=== PATIENT | female | born 1970 | race Caucasian/White ===

== ENCOUNTER 2018-05-17 11:22 | Emergency (ER) | payer OTHER, SELFPAY ==
[2018-05-17] MEDS ORDERED: ALBUTEROL 2.5 MG/3 ML NEB SOL ONE (11:44)
[2018-05-17] MEDS ORDERED: IPRATROPIUM BROM 0.5MG/2.5ML ONE (11:44)
--- NOTE | 2018-05-17 12:50 | RAD REPORT ---
EXAM DESCRIPTION: RAD - Chest Pa And Lat (2 Views) - 05/17/2018 12:37 pm CLINICAL HISTORY: COUGH Chest pain. COMPARISON: ABDOMEN ACUTE SERIES dated 06/02/2011; CHEST PA AND LAT 2 VIEW dated 06/20/2004 FINDINGS: Mild linear opacity is present in the right mid lung, likely representing developing pneum onia. Elsewhere, no pulmonary infiltrate seen. The heart is mildly prominent in size. No displaced fr actures. IMPRESSION: Developing right mid lung pneumonia.
[2018-05-17] MEDS ORDERED: AZITHROMYCIN 250 MG TAB ONE (13:23)
[2018-05-17] MEDS ORDERED: CEFTRIAXONE/SWI 1gm 2 GM/20 ML SYR ONE (13:23)
[2018-05-17 13:28] LABS: Absolute Lymphocytes (CBC) 2.2 K/uL (0.7-4.9); Absolute Neutrophil 7.3 K/uL (1.8-8.0); Basophils % 0.6 % (0-1.3); Eosinophils % 6.6 % (0-4.4); Hematocrit 38.6 % (36.0-45.0); Lymphocytes % 19.2 % (15.3-44.8); MCH 28.9 pg (27.0-35.0); MPV 8.3 fL (7.6-11.3); Monocytes % 8.7 % (3.3-12.3); RBC Red Blood Cell Count 4.44 M/uL (3.86-4.86)
[2018-05-17 13:29] LABS: Protime INR 1.02
[2018-05-17] MEDS ORDERED: LORAZEPAM 0.5 MG TABLET ONE (13:32)
[2018-05-17 13:58] LABS: ALT/SGPT 17 U/L (12-78); AST/SGOT 12 U/L (15-37); Albumin 3.5 g/dL (3.4-5.0); Alkaline Phosphatase 73 U/L (45-117); BUN Blood Urea Nitrogen 10 mg/dL (7-18); Bicarbonate 28 mmol/L (21-32); Bilirubin Direct < 0.1 mg/dL (0-0.2); Bilirubin Total 0.2 mg/dL (0.2-1.0); Glucose Level 105 mg/dL (74-106); Protein, Total 7.7 g/dL (6.4-8.2); Sodium Level 138 mmol/L (136-145)
--- NOTE | 2018-05-17 14:28 | RAD REPORT ---
EXAM DESCRIPTION: CT - Chest For Pe Angio - 05/17/2018 2:17 pm CLINICAL HISTORY: Chest pain. back pain;SOB COMPARISON: No comparisons TECHNIQUE: CT angiogram of the pulmonary arteries was performed with MIP. All CT scans are performed using dose optimization technique as appropriate and may include automated exposure control or mA/KV adjustment according to patient size. FINDINGS: No evidence of pulmonary thromboembolism. No acute aortic finding demonstrated. Interstitial pulmonary opacities are present bilaterally likely representing mild interstitial pneumo nitis. Subsegmental atelectasis is present in both lung bases. Airspace opacity is noted in the poste rior aspect of the right middle lobe. Trace bilateral pleural fluid. No concerning bony finding. IMPRESSION: No evidence of pulmonary thromboembolism. Small area of airspace opacity in the posterior right middle lobe likely represents developing pneumo surjit. Trace bilateral pleural effusions.
--- NOTE | 2018-05-17 14:48 | ER ---
Nurse's Notes [facility] Name: Tabatha Drew Age: 47 yrs Sex: Female : 1970 Arrival Date: 05/17/2018 Time: 11:25 Bed 23 Private MD: None, None Diagnosis: Acute Right Side Pneumonia;Acute Stress Reaction Presentation: 05/17 11:29 Presenting complaint: Patient states: Cough x 2 weeks, productive cough starting two iw days ago with nasal congestion, yellow sputum, wheezing x 1 week. Transition of care: patient was not received from another setting of care. Onset of symptoms was May 17, 2018. Risk Assessment: Do you want to hurt yourself or someone else? Patient reports no desire to harm self or others. Initial Sepsis Screen: Does the patient meet any 2 criteria? HR > 90 bpm. Does the patient have a suspected source of infection? Yes: Productive cough/pneumonia. Care prior to arrival: None. 11:29 Method Of Arrival: Ambulatory iw 11:29 Acuity: SARAN 4 iw Triage Assessment: 15:24 Respiratory: the patient has moderate shortness of breath. iw 15:24 Respiratory: Onset: The symptoms/episode began/occurred. iw Historical: - Allergies: 11:32 Aspirin; iw 11:32 NSAIDS; iw - Home Meds: 11:32 Albuterol Inhl [Active]; iw - PMHx: 11:32 Asthma; Obesity; iw - PSHx: 11:32 None; iw - Immunization history:: Adult Immunizations not up to date. - Social history:: Smoking status: Patient/guardian denies using tobacco. - Ebola Screening: : Patient negative for fever greater than or equal to 101.5 degrees Fahrenheit, and additional compatible Ebola Virus Disease symptoms Patient denies exposure to infectious person Patient denies travel to an Ebola-affected area in the 21 days before illness onset No symptoms or risks identified at this time. Screenin:49 Abuse screen: Denies threats or abuse. Denies injuries from another. Nutritional aj1 screening: No deficits noted. Tuberculosis screening: No symptoms or risk factors identified. 15:24 Fall Risk None identified. iw Assessment: 11:49 General: Appears in no apparent distress. uncomfortable, Behavior is cooperative, aj1 anxious. Pain: Complains of pain in left mid back. Neuro: Level of Consciousness is awake, alert, obeys commands. Cardiovascular: Denies chest pain, Heart tones S1 S2 present Patient's skin is warm and dry. Rhythm is regular. Respiratory: Reports shortness of breath Reports that she has been having a lot of wheezing at home, which she has been using her nebulizer for, but now she is out of medication. Patient requests a new Rx for Duo Neb prior to leaving ER. Notified Dr. Starr of patient request Airway is patent Respiratory effort is even, unlabored, Respiratory pattern is regular, symmetrical, Breath sounds are clear bilaterally. GI: No signs and/or symptoms were reported involving the gastrointestinal system. : No signs and/or symptoms were reported regarding the genitourinary system. EENT: Reports nasal congestion nasal discharge. Derm: No signs and/or symptoms reported regarding the dermatologic system. Skin is pink, warm \T\ dry. normal. Musculoskeletal: No signs and/or symptoms reported regarding the musculoskeletal system. Circulation, motion, and sensation intact. 12:43 Reassessment: Patient appears in no apparent distress at this time. No changes from aj1 previously documented assessment. Patient and/or family updated on plan of care and expected duration. Pain level reassessed. Patient is alert, oriented x 3, equal unlabored respirations, skin warm/dry/pink. 13:30 Reassessment: Patient appears in no apparent distress at this time. No changes from aj1 previously documented assessment. Patient and/or family updated on plan of care and expected duration. Pain level reassessed. Patient is alert, oriented x 3, equal unlabored respirations, skin warm/dry/pink. 14:35 Reassessment: Patient and/or family updated on plan of care and expected duration. Pain aj1 level reassessed. General: Appears in no apparent distress. comfortable, Behavior is calm, cooperative. Neuro: Level of Consciousness is awake, alert, obeys commands. Cardiovascular: Patient's skin is warm and dry. Respiratory: Airway is patent Respiratory effort is even, unlabored, Respiratory pattern is regular, symmetrical. Respiratory: Denies SOB at this time. Derm: Skin is pink, warm \T\ dry. normal. Musculoskeletal: Circulation, motion, and sensation intact. Vital Signs: 11:44 Pulse 99; Resp 17 S; Temp 97.9; Pulse Ox 99% on R/A; iw 11:44 BP 149 / 77; iw 12:43 BP 146 / 75; Pulse 81; Resp 18; Pulse Ox 96% on R/A; aj1 14:00 BP 118 / 56; Pulse 74; Pulse Ox 96% on R/A; jp3 ED Course: 11:25 Patient arrived in ED. sb2 11:26 None, None is Private Physician. sb2 11:26 Dragan Starr MD is Attending Physician. wa 11:29 Arm band placed on. iw 11:31 Triage completed. iw 11:35 Lilly Ellison, NICHOLAS is Primary Nurse. aj1 11:49 Patient has correct armband on for positive identification. Bed in low position. Call aj1 light in reach. Side rails up X 1. 11:49 No provider procedures requiring assistance completed. aj1 12:23 Patient moved to radiology via wheelchair. jb2 12:36 X-ray completed. Patient tolerated procedure well. Patient moved back from radiology. jb2 12:37 Chest Pa And Lat (2 Views) XRAY In Process Unspecified. EDMS 13:23 Initial lab(s) drawn, by me, sent to lab. Inserted saline lock: 20 gauge in right aj1 antecubital area, using aseptic technique. Blood collected. 14:17 CT completed. Patient tolerated procedure well. Patient moved to CT via wheelchair. Patient moved back from CT. 14:18 CT Chest For PE Angio In Process Unspecified. EDMS 14:47 Sheri Brooks MD is Referral Physician. wa 15:23 IV discontinued, intact, bleeding controlled, No redness/swelling at site. Pressure iw dressing applied. Administered Medications: 11:41 Drug: Albuterol 2.5 mg Route: Inhalation; aj1 11:41 Drug: AtroVENT Aerosol 0.5 mg Route: Inhalation; aj1 13:23 Drug: Rocephin - (cefTRIAXone) 2 grams Route: IVPB; Infused Over: 30 mins; Site: right aj1 antecubital; 14:00 Follow up: IV Status: Completed infusion iw 13:23 Drug: Zithromax 500 mg Route: PO; aj1 14:10 Follow up: Response: No adverse reaction iw 14:46 Drug: Ativan 0.25 mg Route: PO; aj1 15:10 Follow up: Response: No adverse reaction iw Outcome: 14:48 Discharge ordered by . wa 15:23 Discharged to home ambulatory, with family. iw 15:23 Condition: good 15:23 Discharge instructions given to patient, family, Instructed on discharge instructions, follow up and referral plans. medication usage, Demonstrated understanding of instructions, follow-up care, medications, Prescriptions given X 4. 15:24 Patient left the ED. iw Signatures: Dispatcher [employer] EDMS Lilly Ellison RN RN aj1 Silas Araujo2 Gena Garcia Irene, RN RN iw Dragan Starr MD MD wa Billeau, Sheri sb2 Yanick Kennedy jp3
--- NOTE | 2018-05-17 14:48 | EDPHYS ---
Physician Documentation [facility] Name: Tabatha Drew Age: 47 yrs Sex: Female : 1970 Arrival Date: 05/17/2018 Time: 11:25 Bed 23 Private MD: None, None ED Physician Dragan Starr HPI: 05/17 11:32 This 47 yrs old Female presents to ER via Ambulatory with complaints of wa Anxiety, Productive Cough, Back Pain. 11:32 The patient or guardian reports cough, that is constant, with productive sputum, that wa is yellow, associated with left side back pain. Onset: The symptoms/episode began/occurred 2 day(s) ago. Severity of symptoms: At their worst the symptoms were moderate, in the emergency department the symptoms are unchanged. Modifying factors: The symptoms are alleviated by nothing, the symptoms are aggravated by nothing. Associated signs and symptoms: Pertinent positives: rhinorrhea, wheezing. , Pertinent negatives: chest pain, fever, sore throat, vomiting. The patient has experienced similar episodes in the past, a few times. The patient has not recently seen a physician. denies h/o smoking. . Historical: - Allergies: 11:32 Aspirin; iw 11:32 NSAIDS; iw - Home Meds: 11:32 Albuterol Inhl [Active]; iw - PMHx: 11:32 Asthma; Obesity; iw - PSHx: 11:32 None; iw - Immunization history:: Adult Immunizations not up to date. - Social history:: Smoking status: Patient/guardian denies using tobacco. - Ebola Screening: : Patient negative for fever greater than or equal to 101.5 degrees Fahrenheit, and additional compatible Ebola Virus Disease symptoms Patient denies exposure to infectious person Patient denies travel to an Ebola-affected area in the 21 days before illness onset No symptoms or risks identified at this time. ROS: 11:34 Constitutional: Negative for fever, chills, and weight loss, Eyes: Negative for injury, wa pain, redness, and discharge, ENT: Negative for injury, pain, and discharge, Neck: Negative for injury, pain, and swelling, Cardiovascular: Negative for chest pain, palpitations, and edema, Abdomen/GI: Negative for abdominal pain, nausea, vomiting, diarrhea, and constipation, Back: Negative for injury and pain, : Negative for injury, bleeding, discharge, and swelling, MS/Extremity: Negative for injury and deformity, Skin: Negative for injury, rash, and discoloration, Neuro: Negative for headache, weakness, numbness, tingling, and seizure, Psych: Negative for depression, anxiety, suicide ideation, homicidal ideation, and hallucinations. 11:34 Respiratory: Positive for cough, with yellow sputum, wheezing, Negative for hemoptysis, orthopnea. 11:34 All other systems are negative. Exam: 11:35 Constitutional: This is a well developed, well nourished patient who is awake, alert, wa and in no acute distress. Head/Face: Normocephalic, atraumatic. Eyes: Pupils equal round and reactive to light, extra-ocular motions intact. Lids and lashes normal. Conjunctiva and sclera are non-icteric and not injected. Cornea within normal limits. Periorbital areas with no swelling, redness, or edema. ENT: Nares patent. No nasal discharge, no septal abnormalities noted. Tympanic membranes are normal and external auditory canals are clear. Oropharynx with no redness, swelling, or masses, exudates, or evidence of obstruction, uvula midline. Mucous membranes moist. Neck: Trachea midline, no thyromegaly or masses palpated, and no cervical lymphadenopathy. Supple, full range of motion without nuchal rigidity, or vertebral point tenderness. No Meningismus. Chest/axilla: Normal chest wall appearance and motion. Nontender with no deformity. No lesions are appreciated. Cardiovascular: Regular rate and rhythm with a normal S1 and S2. No gallops, murmurs, or rubs. Normal PMI, no JVD. No pulse deficits. Abdomen/GI: Soft, non-tender, with normal bowel sounds. No distension or tympany. No guarding or rebound. No evidence of tenderness throughout. Back: No spinal tenderness. No costovertebral tenderness. Full range of motion. Skin: Warm, dry with normal turgor. Normal color with no rashes, no lesions, and no evidence of cellulitis. MS/ Extremity: Pulses equal, no cyanosis. Neurovascular intact. Full, normal range of motion. Neuro: Awake and alert, GCS 15, oriented to person, place, time, and situation. Cranial nerves II-XII grossly intact. Motor strength 5/5 in all extremities. Sensory grossly intact. Cerebellar exam normal. Normal gait. Psych: Awake, alert, with orientation to person, place and time. Behavior, mood, and affect are within normal limits. 11:35 Respiratory: the patient does not display signs of respiratory distress, Respirations: normal, Breath sounds: clear in upper lobes. mils rhonchi L Lower lobe, Respiratory rate: normal Vital Signs: 11:44 Pulse 99; Resp 17 S; Temp 97.9; Pulse Ox 99% on R/A; iw 11:44 BP 149 / 77; iw 12:43 BP 146 / 75; Pulse 81; Resp 18; Pulse Ox 96% on R/A; aj1 14:00 BP 118 / 56; Pulse 74; Pulse Ox 96% on R/A; jp3 MDM: 11:26 Patient medically screened. ne 11:36 Differential Diagnosis: Bronchitis Upper Respiratory Infection Asthma Exacerbation wa Viral Syndrome Pneumonia. Data reviewed: vital signs, nurses notes. 13:02 Test interpretation: by ED physician or midlevel provider: CXR: R mid lung linear wa opacity consistent with pna. pt c/o of L side pain. will CT to r/o PE. . 14:00 Test interpretation: by ED physician or midlevel provider: wbc 11.3. wa 14:45 Test interpretation: by ED physician or midlevel provider: CT chest: no PE. R side wa infiltrate. bilateral trace pleural effusion. Response to treatment: the patient's symptoms have markedly improved after treatment. Special discussion: asked for a few doses of xanax to get over anxiety of recent of mum. will give close f/u. 05/17 13:01 Order name: BMP; Complete Time: 14:00 ne 05/17 13:01 Order name: CBC with Diff; Complete Time: 14:00 ne 05/17 11:32 Order name: Chest Pa And Lat (2 Views) XRAY; Complete Time: 12:53 05/17 13:01 Order name: Hepatic Function; Complete Time: 14:00 ne 05/17 13:01 Order name: PT-INR; Complete Time: 14:00 ne 05/17 13:01 Order name: CT Chest For PE Angio; Complete Time: 14:29 ne 05/17 13:01 Order name: IV Start; Complete Time: 13:23 05/17 13:01 Order name: Labs collected and sent; Complete Time: 13:23 wa Administered Medications: 11:41 Drug: Albuterol 2.5 mg Route: Inhalation; aj1 11:41 Drug: AtroVENT Aerosol 0.5 mg Route: Inhalation; aj1 13:23 Drug: Rocephin - (cefTRIAXone) 2 grams Route: IVPB; Infused Over: 30 mins; Site: right aj1 antecubital; 14:00 Follow up: IV Status: Completed infusion iw 13:23 Drug: Zithromax 500 mg Route: PO; aj1 14:10 Follow up: Response: No adverse reaction iw 14:46 Drug: Ativan 0.25 mg Route: PO; aj1 15:10 Follow up: Response: No adverse reaction iw Disposition: 05/17/18 14:48 Discharged to Home. Impression: Acute Right Side Pneumonia, Acute Stress Reaction. - Condition is Stable. - Discharge Instructions: Community-Acquired Pneumonia, Adult, [id number], Stress and Stress Management. - Prescriptions for Levaquin 500 mg Oral Tablet - take 1 tablet by ORAL route once daily for 7 days; 7 tablet. Ativan 0.5 mg Oral Tablet - take 1 tablet by ORAL route every 12 hours As needed; 6 tablet. Albuterol Sulfate 2.5 mg /3 mL (0.083 %) Inhalation Solution for Nebulization - inhale 1 unit by NEBULIZATION route every 8 hours As needed; 1 box. Albuterol Sulfate 90 mcg/actuation - inhale 1-2 puff by INHALATION route every 4-6 hours; 1 Inhaler. - Medication Reconciliation Form, Thank You Letter, Antibiotic Education, Prescription Opioid Use form. - Follow up: Sheri Brooks MD; When: 1 - 2 days; Reason: Recheck today's complaints. - Problem is new. - Symptoms have improved. - Notes: take antibiotic for pneumonia as prescribed. follow up with your doctor or the one prescribed you for further check up within 2-3 days but return here immediately if worsening concerns. Signatures: Dispatcher [employer] Lilly Hughes RN RN aj1 Michelle Holguin RN RN Dragan Starr MD MD wa Corrections: (The following items were deleted from the chart) 15:24 14:48 05/17/2018 14:48 Discharged to Home. Impression: Acute Right Side Pneumonia; iw Acute Stress Reaction. Condition is Stable. Forms are Medication Reconciliation Form, Thank You Letter, Antibiotic Education, Prescription Opioid Use. Follow up: Sheri Brooks; When: 1 - 2 days; Reason: Recheck today's complaints. Problem is new. Symptoms have improved. khris
[2018-05-17 15:29] VITALS: TEMP 97.9
[2018-05-17 15:30] VITALS: O2SAT 96
[2018-05-17 15:31] VITALS: BP 118/56
== END 2018-05-17 15:24 | disposition home or self-care (01) ==
LOC: ER 11:22
DX: J18.8 Other pneumonia, unspecified organism (principal); F43.0 Acute stress reaction; J45.909 Unspecified asthma, uncomplicated; Z88.6 Allergy status to analgesic agent
CPT/HCPCS: 36415; 71046; 71275; 80048; 80076; 85025; 85610; 96365; 99285; J0696; Q9967

== ENCOUNTER 2018-05-27 14:39 | Emergency (ER) | payer SELFPAY ==
[2018-05-27] MEDS ORDERED: IPRATROPIUM BROM 0.5MG/2.5ML ONE (15:05)
[2018-05-27] MEDS ORDERED: predniSONE 20 MG TAB ONE (15:05)
[2018-05-27] MEDS ORDERED: ALBUTEROL 2.5 MG/3 ML NEB SOL ONE (15:05)
[2018-05-27 15:47] LABS: ALT/SGPT 17 U/L (12-78); AST/SGOT 15 U/L (15-37); Albumin 3.4 g/dL (3.4-5.0); Alkaline Phosphatase 76 U/L (45-117); BUN Blood Urea Nitrogen 12 mg/dL (7-18); Bicarbonate 30 mmol/L (21-32); Bilirubin Direct < 0.1 mg/dL (0-0.2); Bilirubin Total 0.3 mg/dL (0.2-1.0); Glucose Level 92 mg/dL (74-106); Potassium 3.7 mmol/L (3.5-5.1); Protein, Total 7.6 g/dL (6.4-8.2); Sodium Level 140 mmol/L (136-145)
[2018-05-27 16:04] LABS: MCH 28.9 pg (27.0-35.0)
--- NOTE | 2018-05-27 16:10 | RAD REPORT ---
EXAM DESCRIPTION: RAD - Chest Pa And Lat (2 Views) - 05/27/2018 3:47 pm CLINICAL HISTORY: Shortness of breath, persistent cough and wheezing COMPARISON: May 17 TECHNIQUE: PA and lateral views of the chest were obtained. FINDINGS: The lungs are underinflated. Patient has a mild baseline prominence of the interstitial ma rkings. There is patchy opacification in the medial lower right lung field. This is slightly more pro minent than on prior imaging. Stranding seen in the lateral right midlung field has diminished. Heart size is normal and central vasculature is within normal limits. No pleural effusion or pneumot horax seen. No acute bony finding noted. No aortic abnormality. IMPRESSION: Atelectasis and/ or remnant infiltrate in the medial right lower lung field.
[2018-05-27 16:29] LABS: Absolute Lymphocytes (CBC) 2.2 K/uL (0.7-4.9); Absolute Neutrophil 6.9 K/uL (1.8-8.0); Basophils % 0.4 % (0-1.3); Eosinophils % 6.7 % (0-4.4); Hematocrit 38.1 % (36.0-45.0); MCV 87.8 fL (80-100); MPV 8.4 fL (7.6-11.3); Monocytes % 9.7 % (3.3-12.3); RBC Red Blood Cell Count 4.34 M/uL (3.86-4.86)
--- NOTE | 2018-05-27 16:52 | ER ---
Nurse's Notes [facility] Name: Tabtaha Drew Age: 47 yrs Sex: Female : 1970 Arrival Date: 05/27/2018 Time: 14:40 Bed 14 Private MD: None, None Diagnosis: Pneumonia, unspecified organism;Conjunctivitis Presentation: 05/27 14:48 Presenting complaint: Patient states: cough, wheezing x >10 days. Also, bilateral eye ss redness and drainage x 3 days. Transition of care: patient was not received from another setting of care. Onset of symptoms is unknown. Risk Assessment: Do you want to hurt yourself or someone else? Patient reports no desire to harm self or others. Initial Sepsis Screen: Does the patient meet any 2 criteria? No. Patient's initial sepsis screen is negative. Does the patient have a suspected source of infection? Yes: Productive cough/pneumonia. Note Patient reports she was seen in ER and diagnosed with pneumonia 10 days ago, and has not followed up with PCP as directed because she reportedly does not have one. Care prior to arrival: None. 14:48 Method Of Arrival: Ambulatory ss 14:48 Acuity: SARAN 3 ss Historical: - Allergies: 14:54 Aspirin; ss 14:54 NSAIDS; ss - PMHx: 14:54 Asthma; ss - PSHx: 14:54 None; ss - Immunization history:: Adult Immunizations up to date. - Social history:: Smoking status: Patient/guardian denies using tobacco. - Ebola Screening: : Patient denies exposure to infectious person Patient denies travel to an Ebola-affected area in the 21 days before illness onset. Screenin:45 Abuse screen: Denies threats or abuse. Denies injuries from another. Nutritional kr2 screening: No deficits noted. Tuberculosis screening: No symptoms or risk factors identified. Fall Risk None identified. Assessment: 14:45 General: Appears in no apparent distress. uncomfortable, well groomed, well developed, kr2 well nourished, Behavior is calm, cooperative, appropriate for age. Pain: Denies pain. Neuro: Level of Consciousness is awake, alert, obeys commands, Oriented to person, place, time, situation, Appropriate for age. Cardiovascular: Capillary refill < 3 seconds in bilateral fingers Patient's skin is warm and dry. Respiratory: Airway is patent Respiratory effort is even, unlabored, Respiratory pattern is regular, symmetrical, Breath sounds with wheezes bilaterally. GI: Abdomen is flat, non-distended, Bowel sounds present X 4 quads. : Denies burning with urination, denies possiblility of . EENT: Oral mucosa is moist. Derm: Skin is intact, is healthy with good turgor, Skin is pink, warm \T\ dry. Musculoskeletal: Circulation, motion, and sensation intact. 15:15 Reassessment: Patient is alert, oriented x 3, equal unlabored respirations, skin kr2 warm/dry/pink. Patient states she feels much better since starting breathing treatment, no distress. 15:30 Reassessment: Patient appears in no apparent distress at this time. Patient and/or kr2 family updated on plan of care and expected duration. Pain level reassessed. Patient is alert, oriented x 3, equal unlabored respirations, skin warm/dry/pink. Patient denies pain at this time. Patient states feeling better. 16:30 Reassessment: Patient appears in no apparent distress at this time. Patient and/or kr2 family updated on plan of care and expected duration. Pain level reassessed. Patient is alert, oriented x 3, equal unlabored respirations, skin warm/dry/pink. Patient states feeling better. Patient states symptoms have improved. 17:15 Reassessment: Patient appears in no apparent distress at this time. Patient and/or kr2 family updated on plan of care and expected duration. Pain level reassessed. Patient is alert, oriented x 3, equal unlabored respirations, skin warm/dry/pink. Patient denies pain at this time. Patient states feeling better. Vital Signs: 14:47 BP 154 / 115; Pulse 88; Resp 16; Temp 98.7(TE); Pulse Ox 94% on R/A; Weight 68.04 kg; ss Height 5 ft. 1 in. (154.94 cm); 15:00 BP 164 / 117; jp3 16:00 BP 149 / 89 LA Sitting (auto/reg); Pulse 88; Pulse Ox 96% on R/A; jp3 16:30 BP 150 / 90; Pulse 89; Resp 17; Temp 98.4; Pulse Ox 96% ; kr2 14:47 Body Mass Index 28.34 (68.04 kg, 154.94 cm) ss 16:00 Left Forearm jp3 ED Course: 14:40 Patient arrived in ED. sb2 14:40 None, None is Private Physician. sb2 14:43 Rivera Mohan NP is PHCP. pm1 14:43 David Glaser MD is Attending Physician. pm1 14:47 Arm band placed on right wrist. ss 14:50 Bed in low position. Call light in reach. Side rails up X 1. Pulse ox on. NIBP on. jp3 14:53 Triage completed. ss 15:05 Initial lab(s) drawn, by nv, sent to lab. Inserted saline lock: 20 gauge in right jp3 antecubital area, using aseptic technique. Blood collected. 15:28 Cindy Tapia, RN is Primary Nurse. kr2 15:47 Chest Pa And Lat (2 Views) XRAY In Process Unspecified. EDMS 17:15 No provider procedures requiring assistance completed. IV discontinued, intact, kr2 bleeding controlled, No redness/swelling at site. Pressure dressing applied. Administered Medications: 15:03 Drug: Albuterol - atroVENT (3:1) (2.5 mg - 0.5 mg) 3 ml Route: Nebulizer; kr2 15:28 Follow up: Response: No adverse reaction; Marked relief of symptoms kr2 15:28 Drug: predniSONE 60 mg Route: PO; kr2 16:28 Follow up: Response: No adverse reaction kr2 17:13 Drug: Rocephin 1 grams Route: IV; Rate: calculated rate; Site: right antecubital; kr2 17:20 Follow up: Response: No adverse reaction; IV Status: Completed infusion kr2 Outcome: 16:51 Discharge ordered by . pm1 17:15 Discharged to home ambulatory. kr2 17:15 Condition: improved 17:15 Discharge instructions given to patient, Instructed on discharge instructions, follow up and referral plans. medication usage, Demonstrated understanding of instructions, follow-up care, medications, Prescriptions given X 4. 17:22 Patient left the ED. kr2 Signatures: Dispatcher [employer] EDMS Hazel Corral RN RN ss Rivera Mohan, CHRISTIANNE LIQUEFACTION PLANT OPERATOR pm1 Cindy Tapia RN RN kr2 Elizabeth Lyons sb2 Yanick Kennedy jp3 Corrections: (The following items were deleted from the chart) 16:38 16:30 BP 150 / 90; Pulse 89bpm; Resp 17bpm; Pulse Ox 96%; kr2 kr2 17:20 17:19 Rocephin 1 grams IV at calculated rate in right antecubital kr2 kr2 :49 17:30 No provider procedures requiring assistance completed. kr2 kr2 : 17:30 IV discontinued, intact, bleeding controlled, No redness/swelling at site. kr2 Pressure dressing applied, kr2 : 17:30 Reassessment: Patient appears in no apparent distress at this time. Patient kr2 and/or family updated on plan of care and expected duration. Pain level reassessed. Patient is alert, oriented x 3, equal unlabored respirations, skin warm/dry/pink. Patient denies pain at this time. Patient states feeling better. kr2 21:51 17:15 Discharge instructions given to patient, Instructed on discharge instructions, kr2 follow up and referral plans. medication usage, Demonstrated understanding of instructions, follow-up care, medications, Prescriptions given X 3, kr2
--- NOTE | 2018-05-27 16:52 | EDPHYS ---
Physician Documentation [facility] Name: Tabatha Drew Age: 47 yrs Sex: Female : 1970 Arrival Date: 05/27/2018 Time: 14:40 Bed 14 Private MD: None, None ED Physician David Glaser HPI: 05/27 16:32 This 47 yrs old Female presents to ER via Ambulatory with complaints of pm1 Asthma Exacerbation, Eye Problem. 16:32 The patient presents to the emergency department with wheezing, Current therapy: pm1 albuterol inhaler, albuterol nebs, the patient was reported to have audible wheezing. Onset: The symptoms/episode began/occurred today. Modifying factors: The symptoms are alleviated by inhaler, nebulizer treatment, the symptoms are aggravated by nothing. Associated signs and symptoms: Pertinent negatives: chest pain, fever, nausea, palpitations, vomiting, back pain. Severity of symptoms: in the emergency department the symptoms are worse. The patient has experienced similar episodes in the past, multiple times. The patient has been recently seen at the [facility] Emergency Department, Patient seen on 05/17 and diagnosed with right sided early pneumonia. Patient given a prescription for Levaquin for 7 days. 16:32 Patient with onset of bilateral eye redness and matting 3 days ago. Patient started pm1 taking her son's left over medication, Ocuflox?, for pink eye without any improvement. Historical: - Allergies: 14:54 Aspirin; ss 14:54 NSAIDS; ss - PMHx: 14:54 Asthma; ss - PSHx: 14:54 None; ss - Immunization history:: Adult Immunizations up to date. - Social history:: Smoking status: Patient/guardian denies using tobacco. - Ebola Screening: : Patient denies exposure to infectious person Patient denies travel to an Ebola-affected area in the 21 days before illness onset. ROS: 16:47 Constitutional: Negative for fever, chills, and weight loss, ENT: Negative for injury, pm1 pain, and discharge, Neck: Negative for injury, pain, and swelling, Cardiovascular: Negative for chest pain, palpitations, and edema. 16:47 Abdomen/GI: Negative for abdominal pain, nausea, vomiting, diarrhea, and constipation, Back: Negative for injury and pain, : Negative for injury, bleeding, discharge, and swelling, MS/Extremity: Negative for injury and deformity, Skin: Negative for injury, rash, and discoloration. 16:47 Neuro: Negative for headache, weakness, numbness, tingling, and seizure. 16:47 Eyes: Positive for matting, redness, Negative for pain, vision loss, visual disturbance. 16:47 Respiratory: Positive for cough, with yellow sputum, shortness of breath, wheezing. Exam: 16:47 Constitutional: This is a well developed, well nourished patient who is awake, alert, pm1 and in no acute distress. Head/Face: Normocephalic, atraumatic. ENT: Nares patent. No nasal discharge, no septal abnormalities noted. Tympanic membranes are normal and external auditory canals are clear. Oropharynx with no redness, swelling, or masses, exudates, or evidence of obstruction, uvula midline. Mucous membranes moist. Neck: Trachea midline, no thyromegaly or masses palpated, and no cervical lymphadenopathy. Supple, full range of motion without nuchal rigidity, or vertebral point tenderness. No Meningismus. Chest/axilla: Normal chest wall appearance and motion. Nontender with no deformity. No lesions are appreciated. 16:47 Cardiovascular: Regular rate and rhythm with a normal S1 and S2. No gallops, murmurs, or rubs. Normal PMI, no JVD. No pulse deficits. 16:47 Abdomen/GI: Soft, non-tender, with normal bowel sounds. No distension or tympany. No guarding or rebound. No evidence of tenderness throughout. Back: No spinal tenderness. No costovertebral tenderness. Full range of motion. Skin: Warm, dry with normal turgor. Normal color with no rashes, no lesions, and no evidence of cellulitis. MS/ Extremity: Pulses equal, no cyanosis. Neurovascular intact. Full, normal range of motion. 16:47 Eyes: Periorbital structures: appear normal, Pupils: no acute changes, Extraocular movements: no acute changes, Conjunctiva: injected, bilaterally, Corneas: are normal, Sclera: no appreciated abnormality, Lids and lashes: appear normal. 16:47 Respiratory: the patient does not display signs of respiratory distress, Respirations: normal, Breath sounds: wheezing: is heard diffusely. 16:47 Neuro: Orientation: is normal, Motor: is normal, moves all fours. Vital Signs: 14:47 BP 154 / 115; Pulse 88; Resp 16; Temp 98.7(TE); Pulse Ox 94% on R/A; Weight 68.04 kg; ss Height 5 ft. 1 in. (154.94 cm); 15:00 BP 164 / 117; jp3 16:00 BP 149 / 89 LA Sitting (auto/reg); Pulse 88; Pulse Ox 96% on R/A; jp3 16:30 BP 150 / 90; Pulse 89; Resp 17; Temp 98.4; Pulse Ox 96% ; kr2 14:47 Body Mass Index 28.34 (68.04 kg, 154.94 cm) ss 16:00 Left Forearm jp3 MDM: 14:43 Patient medically screened. pm1 16:47 Data reviewed: vital signs. Data interpreted: Pulse oximetry: on room air is 96 %. pm1 Interpretation: normal. 16:50 Counseling: I had a detailed discussion with the patient and/or guardian regarding: the pm1 historical points, exam findings, and any diagnostic results supporting the discharge/admit diagnosis, lab results, radiology results, the need for outpatient follow up, to return to the emergency department if symptoms worsen or persist or if there are any questions or concerns that arise at home. 16:50 ED course: Patient recently completed Levaquin for pneumonia. Chest X-ray shows either pm1 remnant pneumonia in right mid lung or atelectasis. WBC WNL and patient without any shortness of breath after breathing treatment indicating likely asthma exacerbation. Will give the patient Rocephin and Augmentin due to patient returning to the ER for respiratory complaints. Recommended follow up X-ray for ensure resolution. 05/27 14:53 Order name: CBC with Diff; Complete Time: 16:36 pm1 05/27 14:53 Order name: BMP; Complete Time: 15:52 pm1 05/27 14:53 Order name: Hepatic Function; Complete Time: 15:52 pm1 05/27 14:53 Order name: Chest Pa And Lat (2 Views) XRAY; Complete Time: 16:17 pm1 05/27 14:53 Order name: IV Saline Lock; Complete Time: 15:57 pm1 Administered Medications: 15:03 Drug: Albuterol - atroVENT (3:1) (2.5 mg - 0.5 mg) 3 ml Route: Nebulizer; kr2 15:28 Follow up: Response: No adverse reaction; Marked relief of symptoms kr2 15:28 Drug: predniSONE 60 mg Route: PO; kr2 16:28 Follow up: Response: No adverse reaction kr2 17:13 Drug: Rocephin 1 grams Route: IV; Rate: calculated rate; Site: right antecubital; kr2 17:20 Follow up: Response: No adverse reaction; IV Status: Completed infusion kr2 Disposition: 17:50 Co-signature as Attending Physician, David Glaser MD. rn Disposition: 05/27/18 16:51 Discharged to Home. Impression: Pneumonia, unspecified organism, Conjunctivitis. - Condition is Stable. - Discharge Instructions: Bacterial Conjunctivitis, Community-Acquired Pneumonia, Adult. - Prescriptions for Augmentin 875- 125 mg Oral Tablet - take 1 tablet by ORAL route every 12 hours for 10 days; 20 tablet. Medrol (Tariq) 4 mg Oral Tablets, Dose Pack - take 1 tablet by ORAL route as directed - follow package instructions; 1 packet. Gentamicin 0.3 % Ophthalmic Drops - instill 2 drops by OPHTHALMIC route every 4 hours for 7 days; 1 bottle. Albuterol Sulfate 90 mcg/actuation - inhale 1-2 puff by INHALATION route every 4-6 hours; 1 Inhaler. - Medication Reconciliation Form, Thank You Letter, Antibiotic Education form. - Follow up: Emergency Department; When: As needed; Reason: Worsening of condition. Follow up: Private Physician; When: 2 - 3 days; Reason: Recheck today's complaints, Continuance of care, Re-evaluation by your physician. - Problem is new. - Symptoms have improved. Signatures: Dispatcher [employer] EDMS David Glaser MD MD rn Smirch, Shelby, RN RN ss Marinas, Patrick, CHRISTIANNE BAND ATTACHER pm1 Cindy Tapia RN RN kr2 Corrections: (The following items were deleted from the chart) 16:55 16:51 05/27/2018 16:51 Discharged to Home. Impression: Pneumonia, unspecified organism. pm1 Condition is Stable. Forms are Medication Reconciliation Form, Thank You Letter, Antibiotic Education, Prescription Opioid Use. Follow up: Emergency Department; When: As needed; Reason: Worsening of condition. Follow up: Private Physician; When: 2 - 3 days; Reason: Recheck today's complaints, Continuance of care, Re-evaluation by your physician. Problem is new. Symptoms have improved. pm1 17:22 16:55 05/27/2018 16:51 Discharged to Home. Impression: Pneumonia, unspecified organism; kr2 Conjunctivitis. Condition is Stable. Discharge Instructions: Community-Acquired Pneumonia, Adult. Prescriptions for Augmentin 875-125 mg Oral Tablet - take 1 tablet by ORAL route every 12 hours for 10 days; 20 tablet, Medrol (Tariq) 4 mg Oral Tablets, Dose Pack - take 1 tablet by ORAL route as directed - follow package instructions; 1 packet. and Forms are Medication Reconciliation Form, Thank You Letter, Antibiotic Education. Follow up: Emergency Department; When: As needed; Reason: Worsening of condition. Follow up: Private Physician; When: 2 - 3 days; Reason: Recheck today's complaints, Continuance of care, Re-evaluation by your physician. Problem is new. Symptoms have improved. pm1
[2018-05-27] MEDS ORDERED: CEFTRIAXONE/SWI 1gm 1 GM/10 ML SYR ONE (17:07)
[2018-05-27 17:34] VITALS: O2SAT 96
[2018-05-27 17:35] VITALS: BP 150/90; TEMP 98.4
== END 2018-05-27 17:22 | disposition home or self-care (01) ==
LOC: ER 14:39
DX: J18.9 Pneumonia, unspecified organism (principal); H10.9 Unspecified conjunctivitis; Z88.6 Allergy status to analgesic agent
CPT/HCPCS: 36415; 71046; 80048; 80076; 85025; 94640; 96374; 99284; J0696; J7512

== ENCOUNTER 2019-05-21 23:59 | Emergency (ER) | payer OTHER, SELFPAY ==
--- OUTSIDE RECORDS SUMMARY | 2019-05-22 00:01 | XMS REPORT | Summary of Care ---
:1970 Author Organization [facility] Address [address] [place] [id number] Care Team Providers Name Role Phone Pcp, Patient Does Not Have A Primary Care Provider Reason for Referral Radiology Services (Routine) Status Reason Specialty Diagnoses / Referred By Referred To Procedures Contact Contact New Request Diagnostic Diagnoses Right ankle pain, unspecified chronicity Jus Bennett Radiology Procedures XR ANKLE <3 VW RIGHT Byron MD [address] [place] [address] Reason for Visit Reason Comments Follow-up Foot Pain right Ankle Pain right Encounter Details Date Type Department Care Team Description 04/06/2019 Office Visit [facility] Orthopaedic Satish Terrell S, Right ankle pain, Surgery- [facility] unspecified chronicity [address], [address] (Primary Dx) [facility] [place] [address] [place], [place] [phone] Allergies Active Allergy Reactions Severity Noted Date Comments Aspirin Unknown - See comments 07/19/2015 Allergy tests showed allergic documented as of this encounter (statuses as of 04/06/2019) Medications Medication Sig Dispensed Refills Start Date End Date Status phentermine 37.5 mg Take 37.5 mg by 0 Active capsule mouth every morning. HYDROcodone-acetaminoph Take 1 tablet by 0 Active en 5-325 mg tablet mouth every 4 (four) hours as needed. documented as of this encounter (statuses as of 04/06/2019) Active Problems No known active problemsdocumented as of this encounter (statuses as of 2018) Social History Tobacco Use Types Packs/Day Years Used Date Never Smoker Smokeless Tobacco: Never Used Alcohol Use Drinks/Week oz/Week Comments No Sex Assigned at Date Recorded Not on file Job Start Date Occupation Industry Not on file Not on file Not on file Travel History Travel Start Travel End No recent travel history available. documented as of this encounter Last Filed Vital Signs Vital Sign Reading Time Taken Comments Blood Pressure 148/92 04/06/2019 3:16 PM CDT Pulse - - Temperature - - Respiratory Rate - - Oxygen Saturation - - Inhaled Oxygen Concentration - - Weight 72.6 kg (160 lb) 04/06/2019 3:16 PM CDT Height 154.9 cm (5' 1") 04/06/2019 3:16 PM CDT Body Mass Index 30.23 04/06/2019 3:16 PM CDT documented in this encounter Progress Notes Satish Terrell S, PAC - 04/06/2019 3:30 PM CDT Cc: Chief Complaint Patient presents with Follow-up Foot Pain right Ankle Pain right Patient coming in for right foot and ankle pain. She states she hasn't had an injury and doesn't know what she has pain. Tabatha Drew is a 48 year old female. Right ankle pain anterior latteral, no accident, worse with walking and weight baring. She had a lightning pain in the plantar aspect of the 1st metatarsal, there is a feeling like ants in her feet, PmHX sciatica, she has had back injections 4 times, last time 10 years ago. Allergies Tabatha is allergic to aspirin. Medications Outpatient Medications Prior to Visit Medication Sig Dispense Refill HYDROcodone-acetaminophen 5-325 mg tablet Take 1 tablet by mouth every 4 ( four) hours as needed. phentermine 37.5 mg capsule Take 37.5 mg by mouth every morning. No facility-administered medications prior to visit. Histories Past Medical History: Diagnosis Date Asthma Transfusion history Past Surgical History: Procedure Laterality Date DISTAL RADIUS ORIF Right [facility]AL RADIUS [facility]IF Right 05/29/2017 [place]geon: Jus Bennett [place] [facility] [place] Socioeconomic History Marital status: Spouse name: Not on file Number of children: Not on file Years of education: Not on file Highest education level: Not on file Occupational History Not on file Social Needs Financial resource strain: Not on file Food insecurity: Worry: Not on file Inability: Not on file Transportation needs: Medical: Not on file Non-medical: Not on file Tobacco Use Smoking status: Never Smoker Smokeless tobacco: Never Used Substance and Sexual Activity Alcohol use: No Drug use: No Sexual activity: Not on file Lifestyle Physical activity: Days per week: Not on file Minutes per session: Not on file Stress: Not on file Relationships Social connections: Talks on phone: Not on file Gets together: Not on file Attends bahai service: Not on file Active member of club or organization: Not on file Attends meetings of clubs or organizations: Not on file Relationship status: Not on file Intimate partner violence: Fear of current or ex partner: Not on file Emotionally abused: Not on file Physically abused: Not on file Forced sexual activity: Not on file Other Topics Concern Not on file Social History Narrative Not on file Family History Problem Relation Age of Onset Stroke Mother Cancer Mother Hypertension Mother No Significant Medical Problems Father Review of Systems Constitutional: Positive for activity change. HENT: Negative. Eyes: Negative. Respiratory: Negative. Breasts: Negative. Cardiovascular: Negative. Gastrointestinal: Negative. Genitourinary: Negative. Musculoskeletal: Positive for joint swelling. Skin: Negative. Neurological: Negative. Psychiatric/Behavioral: Negative. Endocrine: Endocrine negative Vital Signs BP (!) 148/92 | Ht 61" (154.9 cm) | Wt 72.6 kg (160 lb) | BMI 30.23 kg/m Physical Exam General: Well-developed well-nourished oriented to person place and time HEENT normocephalic atraumatic atraumatic pupils equal round reactive to light extraocular muscles intact Cervical thoracic and lumbar spine without focal deficit normal kyphosis and lordosis Chest clear to auscultation and percussion Cardiovascular regular rate and rhythm without gallop rub or murmur soft without organomegaly Normal bowel sounds Neurologic: Focal myotome or dermatomal deficits Vascular: Intact symmetrical bilateral upper and lower extremities Skin without stasis varicosities or breakdown Extremities without cyanosis clubbing or edema Lymphatics no peripheral lymphedema Psych normal mood and affect. Neuropathic pain in her distal plantar foot. Assessment: 1. Right ankle pain, unspecified chronicity XR ANKLE <3 VW RIGHT Nerve conduction study. documented in this encounter Plan of Treatment Health Maintenance Due Date Last Done Comments DTaP,Tdap,and Td Vaccines (1 - 1989 Tdap) PAP SMEAR 1991 MAMMOGRAM 2010 INFLUENZA VACCINE 05/01/2019 PNEUMOCOCCAL 0-64 YEARS COMBINED Aged Out No longer eligible based on SERIES patient's age to complete this topic documented as of this encounter Results XR ANKLE <3 VW RIGHT (04/06/2019 3:32 PM CDT) Specimen Narrative Performed At 3 views of the right ankle there were no signs of fracture or dislocation PACS the ankle mortise was well maintained Performing Organization Address City/State/[facility] [place] Phone Number PACS documented in this encounter Visit Diagnoses Diagnosis Right ankle pain, unspecified chronicity - Primary documented in this encounter Insurance Payer Benefit Plan / Subscriber ID Effective Dates Phone Address Type Group [facility] [id number] [id number] P[facility] t S documented as of this encounter
--- OUTSIDE RECORDS SUMMARY | 2019-05-22 00:01 | XMS REPORT | Summary of Care ---
:1970 Author Organization [facility] Address [address] [place] [address] Care Team Providers Name Role Phone Pcp, Patient Does Not Have A Primary Care Provider Reason for Referral Radiology Services (Routine) Status Reason Specialty Diagnoses / Referred By Referred To Procedures Contact Contact New Request Diagnostic Diagnoses Right ankle pain, unspecified chronicity Jus Bennett Radiology Procedures XR ANKLE <3 VW RIGHT Byron MD [address] [place] [address] [place] [address] Reason for Visit Reason Comments Follow-up Foot Pain right Ankle Pain right Encounter Details Date Type Department Care Team Description 04/06/2019 Office Visit [facility] Orthopaedic Satish Terrell S, Right ankle pain, Surgery- [facility] unspecified chronicity [address], [address] (Primary Dx) [facility] [[email or web address] [place] [address] [place], [place] [phone] [address] Allergies Active Allergy Reactions Severity Noted [...] Procedure Laterality Date DISTAL RADIUS ORIF Right [facility] DISTAL RADIUS ORIF Right 05/29/2017 Surgeon: Jus Bennett MD; Location: [facility] Social History Socioeconomic History Marital status: Spouse [...] file Gets together: Not on file Attends adventist service: Not on file Active member of [...] mortise was well maintained Performing Organization Address City/State/[facility] Phone Number PACS documented in this encounter Visit Diagnoses Diagnosis Right ankle pain, unspecified chronicity - Primary documented in this encounter Insurance Payer Benefit Plan / Subscriber ID Effective Dates Phone Address Type Group [facility] [id number] [facility] PPO t S documented as of this encounter
--- OUTSIDE RECORDS SUMMARY | 2019-05-22 00:01 | XMS REPORT | Clinical Summary ---
:1970 Author Organization [facility] Address [address] [place] [address] Care Team Providers Name Role Phone Asked, No Pcp Primary Care Provider Unavailable Allergies Not on File Medications Not on file Active Problems Problem Noted Date Idiopathic progressive polyneuropathy Encounters Date Type Specialty Care Team Description 05/13/2019 Transcribe Orders Neurology Madie Garcia MD Right ankle pain , unspecified chronicity (Primary Dx) after 05/21/2018 Social History Tobacco Use Types Packs/Day Years Used Date Never Assessed Sex Assigned at Date Recorded Female 05/12/2019 10:00 PM CDT Job Start Date Occupation Industry Not on file Not on file Not on file Travel History Travel Start Travel End No recent travel history available. Last Filed Vital Signs Not on file Plan of Treatment Health Maintenance Due Date Last Done Comments CERVICAL CANCER SCREENING 1991 INFLUENZA VACCINE 03/31/2019 Procedures Procedure Name Priority Date/Time Associated Diagnosis Comments EMG Routine 05/13/2019 2:12 PM Right ankle pain, Results for this CDT unspecified chronicity procedure are in the results section. after 05/21/2018 Results EMG general request (05/13/2019 2:12 PM CDT) Impressions Performed At Patient complains of burning pain mostly in the dorsal right foot and sciatica bilaterally.She comes in for an EMG study of both legs. 1) Motor latencies, amplitudes and velocities are normal except absent left peroneal F wave 2) Sensory responses show absent saphenous responses and left superficial peroneal response 3) Bilateral H Reflex Responses are normal. 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 [facility] Rodriguez Department of Neurology [facility] [address] [facility] [address] [place], [place] [id number] Office: [phone] Narrative Performed At NERVE CONDUCTION AND ELECTROMYOGRAPHY REPORT [facility]; [place], [place] [address]; Name: Tabatha Drew Date of Procedure: 05/13/19 Sex: female Date of : 1970 Referring Physician: Swapna Bennett MD Ht: 5 foot 1 wt: 175temp: .5 Nerve Conduction(Latencies in msec, Amplitudes uV, Distance cm, Velocity M/Sec) Right Motor Nerves Dist. Lat. Prox lat. D. amp. P. Amp.Dist. Velocity Right Peroneal EDB 3.99.83.8 3.328.5 48 Right Peroneal TA Right Tibial3.810.82.3 232 40 Right Peroneal F Wave 43.6 Right Tibial F Wave 42.2 Right Sensory Nerves Dist. Lat. Prox lat. Dist. amp. Prox Amp. Distance Velocity Right Sural3.4 11 14.0 Right Superficial Peroneal 3.6 10 12.0 Right Saphenousabsent Left Motor Nerves Dist. Lat. Prox lat. D. amp. P. Amp.Dist. Velocity Left Peroneal EDB 3.69.74.5 4.330.5 47 Left Peroneal TA Left Tibial3.39.94 430 46 Left Peroneal F Wave absent Left Tibial F Wave 43.9 Left Sensory Nerves Dist. Lat. Prox lat. Dist. amp. Prox Amp. Distance Velocity Left Sural3.5 10 14.0 Left Superficial Peroneal spxfry00.0 Left Saphenousabsent Right Soleus (H Reflex Response Latency): 30 Left Soleus (H Reflex Response Latency): 30 Electromyography (Motor Unit in mV; H=High; L=Low; P=Polyphasic; NS=Non-specific) Right LegFibs. Pos. Waves Fasc. PolyphasiaMotor Units Recruitment Vas. Medialiswnl wnlwnl wnlwnlwnl Ant. Tibialiswnl wnlwnl wnlwnlwnl Peroneus Longus wnl wnlwnl wnlwnllve Vas.Lateraliswnl wnlwnl wnlwnlwnl Ext. Hallicus L. wnl wnlwnl 20HPwnl-1 Left LegFibs. Pos. Waves Fasc. PolyphasiaMotor Units Recruitment Vas. Medialiswnl wnlwnl wnlwnlwnl Ant. Tibialiswnl wnlwnl wnlwnlwnl Peroneus Longus wnl wnlwnl wnlwnllve Vas. Lateraliswnl wnlwnl wnlwnlwnl Ext. Hallicus L. 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
--- OUTSIDE RECORDS SUMMARY | 2019-05-22 00:02 | XMS REPORT | Summary of Care ---
:1970 Author Organization [facility] Address [address] [place] [address] Care Team Providers Name Role Phone Pcp, Patient Does Not Have A Primary Care Provider Reason for Referral (Routine) Status Reason Specialty Diagnoses / Referred By Referred To Procedures Contact Contact New Request Electroneurodiagnostic Diagnoses Right ankle pain, unspecified chronicity Black Bennett Emg/Ncv Procedures EMGNCV Jus Matthews MD Procedures [address] [place], [place] [address] [place], [place] Phone: [phone] Phone: Reason for Visit Reason Comments Orders Encounter Details Date Type Department Care Team Description 05/03/2019 Telephone [facility] Orthopaedic Jus Bennett MD Orders Surgery- [place] [address] [place] [address] [place] [address] Allergies Active Allergy Reactions Severity Noted Date Comments Aspirin Unknown - See comments 07/19/2015 Allergy tests showed allergic documented as of this encounter (statuses as of 05/04/2019) Medications Medication Sig Dispensed Refills Start Date End Date Status phentermine 37.5 mg Take 37.5 mg by 0 Active capsule mouth every morning. HYDROcodone-acetaminoph Take 1 tablet by 0 Active en 5-325 mg tablet mouth every 4 (four) hours as needed. documented as of this encounter (statuses as of 05/04/2019) Active Problems No known active problemsdocumented as [...] of this encounter Last Filed Vital Signs Not on filedocumented in this encounter Plan of Treatment Name Type Priority Associated Diagnoses Order Schedule EMGNCV EMG Routine Right ankle pain, unspecified 1 Occurrences starting chronicity 05/04/2019 until 11/29/2019 Health Maintenance Due Date Last Done Comments DTaP,Tdap,and Td Vaccines (1 - 1989 Tdap) PAP SMEAR 1991 MAMMOGRAM 2010 INFLUENZA VACCINE (#1) 2019 07/06/2016 PNEUMOCOCCAL 0-64 YEARS COMBINED Aged Out No longer eligible based on SERIES patient's age to complete this topic documented as of this encounter Results Not on filedocumented in this encounter Visit Diagnoses Diagnosis Right ankle pain, unspecified chronicity - Primary documented in this encounter Insurance Payer Benefit Plan / Subscriber ID Effective Phone Address Type Group Dates [facility] [id number] 2019-Pres HMO/PPO/[facility] HEALTHCARE PPO ent [employer] xxxxxxxxx 2017-Pres [address] [place] [id number] [place] [address] documented as of this encounter
--- OUTSIDE RECORDS SUMMARY | 2019-05-22 00:02 | XMS REPORT | Summary of Care ---
:1970 Author Organization [facility] Address [address] [place] [address] Care Team Providers Name Role Phone Pcp, Patient Does Not Have A Primary Care Provider Reason for Referral (Routine) Status Reason Specialty Diagnoses / Referred By Referred To Procedures Contact Contact New Request Electroneurodiagnostic Diagnoses Right ankle pain, unspecified chronicity Black Bennett Emg/Ncv Procedures EMGNCV Jus Matthews MD Procedures [address] [place], [place] [address] [place], [place] Phone: [phone] Phone: Reason for Visit Reason Comments Orders Encounter Details Date Type Department Care Team Description 05/06/2019 Telephone [facility] Orthopaedic Jus Bennett MD Orders Surgery- [place] [address] [place] [address] [place] [address] Allergies Active Allergy Reactions Severity Noted Date Comments Aspirin Unknown - See comments 07/19/2015 Allergy tests showed allergic documented as of this encounter (statuses as of 05/10/2019) Medications Medication Sig Dispensed Refills Start Date End Date Status phentermine 37.5 mg Take 37.5 mg by 0 Active capsule mouth every morning. HYDROcodone-acetaminoph Take 1 tablet by 0 Active en 5-325 mg tablet mouth every 4 (four) hours as needed. documented as of this encounter (statuses as of 05/10/2019) Active Problems No known active problemsdocumented as [...] EMGNCV EMG Routine Right ankle pain, unspecified Expected: 05/17/2019, Expires: chronicity 07/10/2019 Health Maintenance Due Date Last Done Comments [...] ID Effective Phone Address Type Group Dates [facility] [id number] 2019-Pres HMO/PPO/POS HEALTHCARE HEALTHCARE PPO ent [employer] xxxxxxxxx 2017-Pres [address] [place] [id number] [place] [address] documented as of this encounter
--- OUTSIDE RECORDS SUMMARY | 2019-05-22 00:02 | XMS REPORT | Summary of Care ---
:1970 Author Organization [facility] Address [address] [place] [address] Care Team Providers Name Role Phone Pcp, Patient Does Not Have A Primary Care Provider Reason for Visit Radiology Services (Routine) Status Reason Specialty Diagnoses / Referred By Referred To Procedures Contact Contact New Request Diagnostic Diagnoses Right ankle pain, unspecified chronicity Jus Bennett Radiology Procedures XR ANKLE <3 VW RIGHT Byron MD [address] [place] [address] [place] [address] Encounter Details Date Type Department Care Team Description 04/06/2019 Hospital Encounter [facility] - Radiology [address] [facility] [place] [address] [place] [phone] [address] Allergies Active Allergy Reactions Severity Noted Date Comments Aspirin Unknown - See comments 07/19/2015 Allergy tests showed allergic documented as of this encounter (statuses as of 04/07/2019) Medications Medication Sig Dispensed Refills Start Date End Date Status phentermine 37.5 mg Take 37.5 mg by 0 Active capsule mouth every morning. HYDROcodone-acetaminoph Take 1 tablet by 0 Active en 5-325 mg tablet mouth every 4 (four) hours as needed. documented as of this encounter (statuses as of 04/07/2019) Active Problems No known active problemsdocumented as [...] filedocumented in this encounter Plan of Treatment Health Maintenance Due Date Last Done Comments DTaP,Tdap,and Td Vaccines (1 - 1989 Tdap) PAP SMEAR 1991 MAMMOGRAM 2010 INFLUENZA VACCINE 05/01/2019 PNEUMOCOCCAL 0-64 YEARS COMBINED Aged Out No longer eligible based on SERIES patient's age to complete this topic documented as of this encounter Procedures Procedure Name Priority Date/Time Associated Diagnosis Comments XR ANKLE <3 VW Routine 04/06/2019 3:32 PM Right ankle pain, Results for this RIGHT CDT unspecified procedure are in chronicity the results section. documented in this encounter Results XR ANKLE <3 VW RIGHT (04/06/2019 3:32 PM CDT) Specimen Narrative Performed At 3 views of the right ankle there were no signs of fracture or dislocation PACS the ankle mortise was well maintained Performing Organization Address City/State/Zipcode Phone Number PACS documented in this encounter Visit Diagnoses Diagnosis Right ankle pain, unspecified chronicity documented in this encounter Insurance Payer Benefit Plan / Subscriber ID Effective Dates Phone Address Type Group [facility] [id number] 2019-[facility] HMO/PPO/[facility] PPO t S documented as of this encounter
--- OUTSIDE RECORDS SUMMARY | 2019-05-22 00:02 | XMS REPORT | Summary of Care ---
:1970 Author Organization [facility] Address [address] [place] [address] Care Team Providers Name Role Phone Pcp, Patient Does Not Have A Primary Care Provider Reason for Visit Reason Comments Referral/consult Encounter Details Date Type Department Care Team Description 04/28/2019 Telephone [facility] Orthopaedic Jus Bennett, Referral/ consult Surgery- Roxanna PICHARDO [address] [facility] [place] [address] [address] [phone] [place] [address] Allergies Active Allergy Reactions Severity Noted Date Comments Aspirin Unknown - See comments 07/19/2015 Allergy tests showed allergic documented as of this encounter (statuses as of 04/29/2019) Medications Medication Sig Dispensed Refills Start Date End Date Status phentermine 37.5 mg Take 37.5 mg by 0 Active capsule mouth every morning. HYDROcodone-acetaminoph Take 1 tablet by 0 Active en 5-325 mg tablet mouth every 4 (four) hours as needed. documented as of this encounter (statuses as of 04/29/2019) Active Problems No known active problemsdocumented as [...] Results Not on filedocumented in this encounter Insurance Payer Benefit Plan / Subscriber ID Effective Phone Address Type Group [facility] [id number] 2019-Pres HMO/PPO/[facility] PPO ent [employer] xxxxxxxxx 2017-Pres [address] [place] [id number] [place] [address] documented as of this encounter
--- OUTSIDE RECORDS SUMMARY | 2019-05-22 00:02 | XMS REPORT | Summary of Care ---
:1970 Author Organization [facility] - Health Address [address] [place] [address] Care Team Providers Name Role Phone Pcp, Patient Does Not Have A Primary Care Provider Encounter Details Date Type Department Care Team Description 04/27/2019 Orders Only [facility] Doctor Unassigned, No [address] [facility] [place] [address] [address] [place] [address] Allergies Active Allergy Reactions Severity Noted Date Comments Aspirin Unknown - See comments 07/19/2015 Allergy tests showed allergic documented as of this encounter (statuses as of 05/03/2019) Medications Medication Sig Dispensed Refills Start Date End Date Status phentermine 37.5 mg Take 37.5 mg by 0 Active capsule mouth every morning. HYDROcodone-acetaminoph Take 1 tablet by 0 Active en 5-325 mg tablet mouth every 4 (four) hours as needed. documented as of this encounter (statuses as of 05/03/2019) Active Problems No known active problemsdocumented as [...] Procedure Name Priority Date/Time Associated Diagnosis Comments REFERRAL- Routine 04/27/2019 12:01 AM CDT REQUEST/RESPONSE documented in this encounter Results Not on filedocumented in this encounter Insurance Payer Benefit Plan / Subscriber ID Effective Phone Address Type Group Dates [facility] [id number] 2019-Pres HMO/PPO/POS [facility] HEALTHCARE PPO ent [employer] xxxxxxxxx 2017-Pres [address] [place] [id number] [place] [address] documented as of this encounter
--- OUTSIDE RECORDS SUMMARY | 2019-05-22 00:02 | XMS REPORT | Summary of Care ---
:1970 Author Organization [facility] Address [address] [place] [address] Care Team Providers Name Role Phone Pcp, Patient Does Not Have A Primary Care Provider Reason for Visit Reason Comments Orders Encounter Details Date Type Department Care Team Description 04/26/2019 Telephone [facility] Orthopaedic Jus Bennett MD Orders Surgery- [place] [address] [facility] [address] [facility], [place] [address] [place] [address] Allergies Active Allergy Reactions Severity Noted Date Comments Aspirin Unknown - See comments 07/19/2015 Allergy tests showed allergic documented as of this encounter (statuses as of 04/27/2019) Medications Medication Sig Dispensed Refills Start Date End Date Status phentermine 37.5 mg Take 37.5 mg by 0 Active capsule mouth every morning. HYDROcodone-acetaminoph Take 1 tablet by 0 Active en 5-325 mg tablet mouth every 4 (four) hours as needed. documented as of this encounter (statuses as of 04/27/2019) Active Problems No known active problemsdocumented as [...] Subscriber ID Effective Phone Address Type Group [facility] [id number] 2019-Pres HMO/PPO/[facility] HEALTHCARE PPO ent [employer] xxxxxxxxx 2017-Pres [address] [place] [id number] [place] [address] documented as of this encounter
--- OUTSIDE RECORDS SUMMARY | 2019-05-22 00:03 | XMS REPORT | Summary of Care ---
:1970 Author Organization [facility] - Health Address [address] [place] [address] Care Team Providers Name Role Phone Pcp, Patient Does Not Have A Primary Care Provider Encounter Details Date Type Department Care Team Description 05/17/2019 Orders Only [facility] Doctor Unassigned, No [address] [facility] [place] [address] [address] [place] [address] Allergies Active Allergy Reactions Severity Noted Date Comments Aspirin Unknown - See comments 07/19/2015 Allergy tests showed allergic documented as of this encounter (statuses as of 05/17/2019) Medications Medication Sig Dispensed Refills Start Date End Date Status phentermine 37.5 mg Take 37.5 mg by 0 Active capsule mouth every morning. HYDROcodone-acetaminoph Take 1 tablet by 0 Active en 5-325 mg tablet mouth every 4 (four) hours as needed. documented as of this encounter (statuses as of 05/17/2019) Active Problems No known active problemsdocumented as [...] filedocumented in this encounter Plan of Treatment Date Type Specialty Care Team Description 05/17/2019 Office Visit Orthopedic Surgery Satish Terrell, BOY [address] [place] [address] [phone] Health Maintenance Due Date Last Done Comments DTaP,Tdap,and Td Vaccines (1 - 1989 Tdap) PAP SMEAR 1991 MAMMOGRAM 2010 INFLUENZA VACCINE (#1) 2019 07/06/2016 PNEUMOCOCCAL 0-64 YEARS COMBINED Aged Out No longer eligible based on SERIES patient's age to complete this topic documented as of this encounter Procedures Procedure Name Priority Date/Time Associated Diagnosis Comments ASSIGNMENT OF BENEFITS Routine 05/17/2019 3:38 PM CDT documented in this encounter Results Not on filedocumented in this encounter Insurance Payer Benefit Plan / Subscriber ID Effective Dates Phone Address Type [facility] [id number] 2019-[facility] HMO/PPO/[facility] PPO t S documented as of this encounter
--- OUTSIDE RECORDS SUMMARY | 2019-05-22 00:03 | XMS REPORT | Summary of Care ---
:1970 Author Organization [facility] Address [address] [place] [id number] Care Team Providers Name Role Phone Pcp, Patient Does Not Have A Primary Care Provider Reason for Referral (Routine) Status Reason Specialty Diagnoses / Referred By Referred To Procedures Contact Contact New Request Location Physical Diagnoses Neuropathy Satish Terrell Preference Therapy Procedures CONSULT/REFERRAL PHYSICAL THERAPY S, PAC [address] [place] [address] Reason for Visit Reason Comments Follow-up EMG/NVC RLE Encounter Details Date Type Department Care Team Description 05/17/2019 Office Visit [facility] Orthopaedic Satish Terrell S, Neuropathy (Primary Surgery- [facility] PAC Dx) [address] [facility], [address] [place] [address] [place], [place] [phone] Allergies Active Allergy Reactions Severity Noted Date Comments Aspirin Unknown - See comments 07/19/2015 Allergy tests showed allergic documented as of this encounter (statuses as of 05/17/2019) Medications Medication Sig Dispensed Refills Start Date End Date Status phentermine 37.5 mg Take 37.5 mg by 0 Active capsule mouth every morning. HYDROcodone-acetamino Take 1 tablet by 0 Active phen 5-325 mg tablet mouth every 4 (four) hours as needed. gabapentin Take 1 capsule 90 capsule 0 05/17/2019 06/16/2019 Active (NEURONTIN) 300 mg by mouth 3 capsuleIndications: (three) times Neuropathy daily for 30 days. documented as of this encounter (statuses as [...] Sign Reading Time Taken Comments Blood Pressure 136/83 05/17/2019 3:40 PM CDT Pulse 83 05/17/2019 3:40 PM CDT Temperature - - Respiratory Rate - - Oxygen Saturation - - Inhaled Oxygen Concentration - - Weight 72.6 kg (160 lb) 05/17/2019 3:40 PM CDT Height 154.9 cm (5' 1") 05/17/2019 3:40 PM CDT Body Mass Index 30.23 05/17/2019 3:40 PM CDT documented in this encounter Progress Notes Satish Terrell, PAC - 05/17/2019 3:45 PM CDT Cc: Chief Complaint Patient presents with Follow-up EMG/NVC RLE Patient here for EMG results. Continues to have pain in her right lower leg. Reports no changes in medications or allergies since the last office visit. Alfreda Blanchard 05/17/2019 3:47 PM Tabatha Dueñassheela Drew is a 48 year old female. Follow-up on bilateral radiculopathy with EMG results This is affecting her activities of daily living its difficult going to grocery store. Right ankle pain anterior latteral, no accident, [...] Procedure Laterality Date DISTAL RADIUS ORIF Right [facility] DISTAL RADIUS ORIF Right 05/29/2017 Surgeon: [...] file Gets together: Not on file Attends anglican service: Not on file Active member of [...] Psychiatric/Behavioral: Negative. Endocrine: Endocrine negative Vital Signs Ht 61" (154.9 cm) | Wt 72.6 kg (160 lb) | BMI 30.23 kg/m Physical Exam Musculoskeletal: Physical Exam Constitutional: oriented to person, place, and time. appears well-developed and well-nourished. HENT: Head: Normocephalic and atraumatic. Right Ear: External ear normal. Left Ear: External ear normal. Eyes: Conjunctivae are normal. Neck: Normal range of motion. No strabismus Neck supple. Cardiovascular: Normal rate and regular rhythm. Pulmonary/Chest: Normal respiratory rate equal chest rise and fall in no apparent distress Abdominal: Abdomen nondistended nontender Neurological: alert and oriented to person, place, and time. No asymmetry Skin: Skin is warm and dry. Psychiatric: normal mood and affect. behavior is normal. Judgment and thought content normal. Nursing note and vitals reviewed. Back pain exam Location Strength in the lower extremities 5 over 5 to include extensor hallucis longus foot plantarflexion foot dorsiflexion knee flexion knee extension hip abduction and hip adduction and hip flexion. Deep tendon reflexes +2 over 4 patella bilateral +2 over 4 Achilles bilateral Sensory function intact in the lower extremities Follow-up on nerve conduction study impression: Patient complains of burning pain mostly in the dorsal right foot and bilateral sciatica. She comes in for EMG study of both legs. 1. Or latencies, amplitudes and velocities are normal except absent left peroneal F Wave 2. Sensory responses show absent saphenous response and left superficial peroneal response 3. Bilateral H reflex response are normal. 4. 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 Neuropathy I recommend that she follow-up with the neurologist she has an appointment with Dr. Mckeon he was going to do her nerve conduction study but she should consult with him going to give her prescription for physical therapy to help with her gait and her strength. I will start her on Neurontin but we will not long-term manage that. 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
[2019-05-22 01:40] LABS: Absolute Lymphocytes (CBC) 2.9 K/uL (0.7-4.9); Basophils % 0.3 % (0-1.3); Hematocrit 36.4 % (36.0-45.0); MPV 8.4 fL (7.6-11.3); RBC Red Blood Cell Count 4.19 M/uL (3.86-4.86)
[2019-05-22 01:44] LABS: Albumin 3.5 g/dL (3.4-5.0); Bilirubin Total 0.2 mg/dL (0.2-1.0); Potassium 3.4 mmol/L (3.5-5.1); Protein, Total 7.2 g/dL (6.4-8.2)
--- NOTE | 2019-05-22 01:48 | ER ---
Nurse's Notes [facility] Name: Tabatha Drew Age: 48 yrs Sex: Female : 1970 Arrival Date: 05/22/2019 Time: 00:02 Bed 16 Private MD: Diagnosis: Polyneuropathy, unspecified Presentation: 05/22 00:05 Presenting complaint: Patient states: that she has been seeing Dr Bennett for burning fc to right foot for some time. Then last week her left calf started to have some numbness. She then has an EMG done and has an appt to see Dr Mckeon on . The same spot that was numb last week for a day is now having pain (left calf). Transition of care: patient was not received from another setting of care. Onset of symptoms was May 2019. Risk Assessment: Do you want to hurt yourself or someone else? Patient reports no desire to harm self or others. Initial Sepsis Screen: Does the patient meet any 2 criteria? No. Patient's initial sepsis screen is negative. Does the patient have a suspected source of infection? No. Patient's initial sepsis screen is negative. Care prior to arrival: None. 00:05 Method Of Arrival: Ambulatory fc 00:05 Acuity: SARAN 3 fc Historical: - Allergies: 00:30 Aspirin; fc 00:30 NSAIDS; fc - Home Meds: 00:30 Albuterol Inhl as needed [Active]; gabapentin 300 mg oral cap 1 cap 3 times per day fc [Active]; - PMHx: 00:30 Asthma; Obesity; fc - PSHx: 00:30 right wrist; fc - Immunization history:: Last tetanus immunization: up to date. - Social history:: Smoking status: Patient/guardian denies using tobacco, Patient uses alcohol, occasionally. - Ebola Screening: : Patient negative for fever greater than or equal to 101.5 degrees Fahrenheit, and additional compatible Ebola Virus Disease symptoms Patient denies exposure to infectious person Patient denies travel to an Ebola-affected area in the 21 days before illness onset. Screenin:24 Abuse screen: Denies threats or abuse. Denies injuries from another. Nutritional lp1 screening: No deficits noted. Tuberculosis screening: No symptoms or risk factors identified. Fall Risk None identified. Assessment: 00:22 General: Appears in no apparent distress. Behavior is calm, cooperative, appropriate lp1 for age. Pain: Denies pain. Neuro: Level of Consciousness is awake, alert, obeys commands, Oriented to person, place, time, situation, Reports paresthesias in left calf. Cardiovascular: Patient's skin is warm and dry. Respiratory: Respiratory effort is even, unlabored. GI: No deficits noted. : No deficits noted. EENT: No deficits noted. EENT:. Derm: Skin is pink, warm \T\ dry. Musculoskeletal: No deficits noted. 02:11 Reassessment: Provider at bedside to discuss results with patient and plan for lp1 follow-up. Vital Signs: 00:05 BP 144 / 76; Pulse 78; Resp 18; Temp 98.3(O); Pulse Ox 100% on R/A; Weight 72.57 kg (R); Height 5 ft. 1 in. (154.94 cm) (R); Pain 2/10; 00:05 Body Mass Index 30.23 (72.57 kg, 154.94 cm) ED Course: 00:02 Patient arrived in ED. ds1 00:13 Sagrario Li, RN is Primary Nurse. lp1 00:24 Patient has correct armband on for positive identification. lp1 00:27 Rivera Mohan NP is PHCP. pm1 00:27 Dragan Starr MD is Attending Physician. pm1 00:27 Triage completed. 00:28 Arm band placed on right wrist. lp1 02:11 No provider procedures requiring assistance completed. Patient did not have IV access lp1 during this emergency room visit. Administered Medications: No medications were administered Outcome: 01:47 Discharge ordered by . pm1 02:11 Discharged to home ambulatory. lp1 02:11 Condition: good 02:11 Discharge instructions given to patient, Instructed on discharge instructions, follow up and referral plans. Demonstrated understanding of instructions, follow-up care. 02:11 Patient left the ED. lp1 Signatures: Rosa Painting RN RN Nayeli Taylor ds1 Sagrario Li RN RN lp1 Rivera Mohan NP DIRECTOR FUNDS DEVELOPMENT pm1
--- NOTE | 2019-05-22 01:48 | EDPHYS ---
Physician Documentation [facility] Name: Tabatha Drew Age: 48 yrs Sex: Female : 1970 Arrival Date: 05/22/2019 Time: 00:02 Bed 16 Private MD: ED Physician Dragan Starr HPI: 05/22 01:30 This 48 yrs old Female presents to ER via Ambulatory with complaints of pm1 Bilateral lower leg pain. 01:30 The patient presents with pain. pm1 03:57 The complaints affect the right and left lower extremities. Context: resulted from pm1 neuropathy. Patient has been seeing Dr. Bennett for the same complaint for multiple months. Patient with lower extremity EMG that shows polyneuropathy. Modifying factors: The symptoms are alleviated by gabapentin that was started this week by Dr. Bennett. Associated signs and symptoms: Pertinent negatives calf tenderness, swelling, warmth, erythema. Treatment prior to arrival includes: no previous treatment. Severity of symptoms: in the emergency department the symptoms have improved. The patient has experienced similar episodes in the past, chronically. Historical: - Allergies: 00:30 Aspirin; fc 00:30 NSAIDS; fc - Home Meds: 00:30 Albuterol Inhl as needed [Active]; gabapentin 300 mg oral cap 1 cap 3 times per day fc [Active]; - PMHx: 00:30 Asthma; Obesity; fc - PSHx: 00:30 right wrist; fc - Immunization history:: Last tetanus immunization: up to date. - Social history:: Smoking status: Patient/guardian denies using tobacco, Patient uses alcohol, occasionally. - Ebola Screening: : Patient negative for fever greater than or equal to 101.5 degrees Fahrenheit, and additional compatible Ebola Virus Disease symptoms Patient denies exposure to infectious person Patient denies travel to an Ebola-affected area in the 21 days before illness onset. ROS: 03:57 Constitutional: Negative for fever, chills, and weight loss, Eyes: Negative for injury, pm1 pain, redness, and discharge, ENT: Negative for injury, pain, and discharge, Neck: Negative for injury, pain, and swelling, Cardiovascular: Negative for chest pain, palpitations, and edema, Respiratory: Negative for shortness of breath, cough, wheezing, and pleuritic chest pain, Abdomen/GI: Negative for abdominal pain, nausea, vomiting, diarrhea, and constipation, Back: Negative for injury and pain. 03:57 Skin: Negative for injury, rash, and discoloration, Neuro: Negative for headache, weakness, numbness, tingling, and seizure. 03:57 MS/extremity: Positive for pain, of the right foot and left foot, right and left lower leg, Negative for decreased range of motion, deformity. Exam: 03:57 Constitutional: This is a well developed, well nourished patient who is awake, alert, pm1 and in no acute distress. Head/Face: Normocephalic, atraumatic. Chest/axilla: Normal chest wall appearance and motion. Nontender with no deformity. No lesions are appreciated. Cardiovascular: Regular rate and rhythm with a normal S1 and S2. No gallops, murmurs, or rubs. Normal PMI, no JVD. No pulse deficits. Respiratory: Lungs have equal breath sounds bilaterally, clear to auscultation and percussion. No rales, rhonchi or wheezes noted. No increased work of breathing, no retractions or nasal flaring. Abdomen/GI: Soft, non-tender, with normal bowel sounds. No distension or tympany. No guarding or rebound. No evidence of tenderness throughout. Back: No spinal tenderness. No costovertebral tenderness. Full range of motion. Skin: Warm, dry with normal turgor. Normal color with no rashes, no lesions, and no evidence of cellulitis. MS/ Extremity: Pulses equal, no cyanosis. Neurovascular intact. Full, normal range of motion. 03:57 Neuro: Orientation: is normal, Motor: is normal, moves all fours. Vital Signs: 00:05 BP 144 / 76; Pulse 78; Resp 18; Temp 98.3(O); Pulse Ox 100% on R/A; Weight 72.57 kg fc (R); Height 5 ft. 1 in. (154.94 cm) (R); Pain 2/10; 00:05 Body Mass Index 30.23 (72.57 kg, 154.94 cm) fc MDM: 00:49 Patient medically screened. pm1 01:46 Data reviewed: vital signs. Data interpreted: Pulse oximetry: on room air is 100 %. pm1 Interpretation: normal. Counseling: I had a detailed discussion with the patient and/or guardian regarding: the historical points, exam findings, and any diagnostic results supporting the discharge/admit diagnosis, lab results, the need for outpatient follow up, to return to the emergency department if symptoms worsen or persist or if there are any questions or concerns that arise at home. 05/22 01:02 Order name: CMP; Complete Time: 01:46 pm1 05/22 01:02 Order name: CBC with Diff; Complete Time: 01:43 pm1 Administered Medications: No medications were administered Disposition: 08:59 Co-signature as Attending Physician, Dragan Starr MD I agree with the assessment and wa plan of care. Disposition: 05/22/19 01:47 Discharged to Home. Impression: Polyneuropathy, unspecified. - Condition is Stable. - Discharge Instructions: Peripheral Neuropathy. - Medication Reconciliation Form, Thank You Letter, Antibiotic Education, Prescription Opioid Use form. - Follow up: Emergency Department; When: As needed; Reason: Worsening of condition. Follow up: Private Physician; When: 2 - 3 days; Reason: Recheck today's complaints, Continuance of care, Re-evaluation by your physician. - Problem is new. - Symptoms have improved. Signatures: Dispatcher [employer] EDMS Rosa Painting RN RN Sagrario Li RN RN lp1 Rivera Mohan, SWEAT BAND SEWER SWEAT BAND SEWER pm1 Dragan Starr MD MD [place] Corrections: (The following items were deleted from the chart) 02:11 01:47 05/22/2019 01:47 Discharged to Home. Impression: Polyneuropathy, unspecified. lp1 Condition is Stable. Forms are Medication Reconciliation Form, Thank You Letter, Antibiotic Education, Prescription Opioid Use. Follow up: Emergency Department; When: As needed; Reason: Worsening of condition. Follow up: Private Physician; When: 2 - 3 days; Reason: Recheck today's complaints, Continuance of care, Re-evaluation by your physician. Problem is new. Symptoms have improved. pm1
[2019-05-22 03:02] VITALS: BP 144/76; TEMP 98.3; O2SAT 100
== END 2019-05-22 02:11 | disposition home or self-care (01) ==
LOC: ER 23:59
DX: G62.9 Polyneuropathy, unspecified (principal); M79.604 Pain in right leg; J45.909 Unspecified asthma, uncomplicated; E66.9 Obesity, unspecified; Z88.6 Allergy status to analgesic agent
CPT/HCPCS: 36415; 80053; 85025; 99281

== ENCOUNTER 2019-11-09 15:11 | Emergency (ER) | payer OTHER ==
--- OUTSIDE RECORDS SUMMARY | 2019-11-09 15:13 | XMS REPORT ---
:1970 [facility] Address [address] [place] [address] [place] [address] Care Team Providers Name Role Phone Unavailable Unavailable Unavailable Problems This patient has no known problems. Allergies, Adverse Reactions, Alerts This patient has no known allergies or adverse reactions. Medications This patient has no known medications.
--- NOTE | 2019-11-09 16:45 | RAD REPORT ---
EXAM DESCRIPTION: Ribs Right - 11/09/2019 4:31 pm CLINICAL HISTORY: Right rib pain FINDINGS: No fracture is seen
--- NOTE | 2019-11-09 17:12 | EDPHYS ---
Physician Documentation [facility] Name: Tabatha Drew Age: 49 yrs Sex: Female : 1970 Arrival Date: 11/09/2019 Time: 15:13 Bed 12 Private MD: ED Physician Greg Kowalski HPI: 11/08 17:21 This 49 yrs old Female presents to ER via Ambulatory with complaints of Rib kdr Pain - InQuicker. 17:21 The patient or guardian reports chest pain that is located primarily in the anterior kdr chest wall, right. Onset: suddenly. 17:21 Onset: This last weekend. The pain does not radiate. Associated signs and symptoms: The kdr patient has no apparent associated signs or symptoms. The chest pain is described as sharp, stabbing. Duration: The patient or guardian reports a single episode, that is still ongoing. Modifying factors: The symptoms are alleviated by nothing. the symptoms are aggravated by activity, breathing, cough, deep breath, movement, palpation of area, twisting torso. Severity of pain: At its worst the pain was mild. The patient has not experienced similar symptoms in the past. The patient has not recently seen a physician. Historical: - Allergies: 11/09 14:37 Aspirin; dm5 14:37 NSAIDS; dm5 ROS: 11/08 17:21 Constitutional: Negative for fever, chills, and weight loss, Eyes: Negative for injury, kdr pain, redness, and discharge, Neck: Negative for injury, pain, and swelling, Respiratory: Negative for shortness of breath, cough, wheezing, and pleuritic chest pain. Cardiovascular: Positive for chest pain. Exam: 17:21 Constitutional: This is a well developed, well nourished patient who is awake, alert, kdr and in no acute distress. 17:21 Chest/axilla: Inspection: Palpation: tenderness, that is mild, of the right breast. MDM: 17:11 Patient medically screened. kdr 17:21 Data reviewed: vital signs, nurses notes, lab test result(s). [facility] 11/08 15:27 Order name: XRAY Ribs RIGHT; Complete Time: 17:06 dm5 Administered Medications: No medications were administered Disposition: 11/09/19 17:11 Discharged to Home. Impression: Right anterior inferior thorax pain s/p fall. - Condition is Stable. - Discharge Instructions: Chest Contusion, [id number]. - Prescriptions for Ibuprofen 600 mg Oral Tablet - take 1 tablet by ORAL route every 6 hours As needed take with food; 30 tablet. Tramadol 50 mg Oral Tablet - take 1 tablet by ORAL route every 8 hours as needed; 12 tablet. - Medication Reconciliation Form, Thank You Letter form. - Follow up: Private Physician; When: 2 - 3 days; Reason: If symptoms return, Further diagnostic work-up, Recheck today's complaints, Continuance of care, Re-evaluation by your physician. - Problem is new. - Symptoms have improved. Signatures: Dispatcher [employer] EDWY Rebeca Booth RN RN dm5 Greg Kowalski MD MD [facility] Corrections: (The following items were deleted from the chart) 17:18 17:11 11/09/2019 17:11 Discharged to Home. Impression: Right anterior inferior thorax dm5 pain s/p fall. Condition is Stable. Forms are Medication Reconciliation Form, Thank You Letter, Antibiotic Education, Prescription Opioid Use. Follow up: Private Physician; When: 2 - 3 days; Reason: If symptoms return, Further diagnostic work-up, Recheck today's complaints, Continuance of care, Re-evaluation by your physician. Problem is new. Symptoms have improved. kdr
--- NOTE | 2019-11-09 17:12 | ER ---
Nurse's Notes [facility] Name: Tabatha Drew Age: 49 yrs Sex: Female : 1970 Arrival Date: 11/09/2019 Time: 15:13 Bed 12 Private MD: Diagnosis: Right anterior inferior thorax pain s/p fall Presentation: 11/08 15:45 Chief complaint: Patient states: fell this weekend and landed on right side. pt reports dm5 light bruising, pain when breathing and moving. Hard to sleep because of the pain. pain rated at a 6/10 at this time. Coronavirus screen: The patient has NOT traveled to a country currently being monitored by the [facility] within the last 14 days. Proceed with normal triage procedures. The patient has NOT had contact with any known and/or suspected case of coronavirus. Proceed with normal triage procedures. Ebola Screen: Patient negative for fever greater than or equal to 101.5 degrees Fahrenheit, and additional compatible Ebola Virus Disease symptoms Patient denies exposure to infectious person. Patient denies travel to an Ebola-affected area in the 21 days before illness onset. No symptoms or risks identified at this time. 15:45 Method Of Arrival: Ambulatory dm5 15:45 Acuity: SARAN 4 dm5 Triage Assessment: 14:50 General: Appears in no apparent distress. Behavior is calm, cooperative. Pain: dm5 Complains of pain in left lateral posterior chest and left lateral anterior chest. Neuro: Level of Consciousness is awake, alert, obeys commands. Respiratory: Airway is patent. Derm: Skin is pink, warm \T\ dry. Historical: - Allergies: 11/09 14:37 Aspirin; dm5 14:37 NSAIDS; dm5 ED Course: 11/08 15:13 Patient arrived in ED. ag5 15:46 Greg Kowalski MD is Attending Physician. kdr 15:46 Triage completed. dm5 16:28 XRAY Ribs RIGHT In Process Unspecified. EDMS 17:17 Rebeca Booth, RN is Primary Nurse. dm5 11/09 14:37 Arm band placed on. dm5 Administered Medications: No medications were administered Outcome: 11/08 17:11 Discharge ordered by . kdr 17:18 Patient left the ED. dm5 Signatures: Dispatcher [employer] EDMS Rebeca Booth, RN RN dm5 Greg Kowalski MD MD kdr Tania, Shara ag5
== END 2019-11-09 17:18 | disposition home or self-care (01) ==
LOC: ER 15:11
DX: R07.89 Other chest pain (principal); W19.XXXA Unspecified fall, initial encounter; Y93.9 Activity, unspecified; Y92.9 Unspecified place or not applicable
CPT/HCPCS: 99282

== ENCOUNTER 2019-11-13 22:34 | Emergency (ER) | payer OTHER ==
--- OUTSIDE RECORDS SUMMARY | 2019-11-13 22:37 | XMS REPORT ---
:1970 [facility] Address [address] [place] [address] [place] [id number] Care Team Providers Name Role Phone Unavailable Unavailable Unavailable Problems This patient has no known problems. Allergies, Adverse Reactions, Alerts This patient has no known allergies or adverse reactions. Medications This patient has no known medications.
[2019-11-13] MEDS ORDERED: MORPHINE 4 MG/ML SYR ONE (22:56)
[2019-11-13] MEDS ORDERED: ONDANSETRON 4 MG/2 ML VIAL ONE (22:56)
[2019-11-13] MEDS ORDERED: NA CHLORIDE 0.9% 1,000 ML ONE (22:56)
[2019-11-13 23:12] LABS: Absolute Lymphocytes (CBC) 1.9 K/uL (0.7-4.9); Basophils % 0.7 % (0-1.3); Hematocrit 40.1 % (36.0-45.0); Lymphocytes % 21.6 % (15.3-44.8); MPV 8.5 fL (7.6-11.3); RBC Red Blood Cell Count 4.58 M/uL (3.86-4.86)
[2019-11-13 23:24] LABS: ALT/SGPT 29 U/L (12-78); AST/SGOT 21 U/L (15-37); Albumin 3.5 g/dL (3.4-5.0); Alkaline Phosphatase 64 U/L (45-117); BUN Blood Urea Nitrogen 10 mg/dL (7-18); Bicarbonate 31 mmol/L (21-32); Bilirubin Direct < 0.1 mg/dL (0-0.2); Bilirubin Total 0.3 mg/dL (0.2-1.0); Glucose Level 134 mg/dL (74-106); Lipase 229 U/L (73-393); Potassium 3.2 mmol/L (3.5-5.1); Protein, Total 7.7 g/dL (6.4-8.2); Sodium Level 142 mmol/L (136-145)
--- NOTE | 2019-11-14 00:23 | ER ---
Nurse's Notes [facility] Name: Tabatha Drew Age: 49 yrs Sex: Female : 1970 Arrival Date: 11/13/2019 Time: 22:35 Bed 6 Private MD: Diagnosis: Calculus of ureter;Hypokalemia Presentation: 11/12 22:40 Chief complaint: EMS states: patient complaint of abdominal pain started 3pm today more rr5 on the LLQ area. pain score of 20/10. 22:40 Coronavirus screen: The patient has NOT traveled to a country currently being monitored rr5 by the [facility] within the last 14 days. Proceed with normal triage procedures. Ebola Screen: Patient negative for fever greater than or equal to 101.5 degrees Fahrenheit, and additional compatible Ebola Virus Disease symptoms Patient denies exposure to infectious person. Patient denies travel to an Ebola-affected area in the 21 days before illness onset. Initial Sepsis Screen: Does the patient meet any 2 criteria? No. Patient's initial sepsis screen is negative. Does the patient have a suspected source of infection? No. Patient's initial sepsis screen is negative. Risk Assessment: Do you want to hurt yourself or someone else? Patient reports no desire to harm self or others. Onset of symptoms was November 13, 2019 at 15:00. Care prior to arrival: Medication(s) given: toradol 30mg IV. 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 - Social history:: Smoking status: unknown Patient uses alcohol, occasionally. Patient/guardian denies using street drugs. Screenin:57 Abuse screen: Denies threats or abuse. Denies injuries from another. Nutritional rr5 screening: No deficits noted. Tuberculosis screening: No symptoms or risk factors identified. Fall Risk IV access (20 points). Total Ayers Fall Scale indicates No Risk (0-24 pts). Assessment: 22:40 General: Appears in no apparent distress. uncomfortable, ill, Behavior is calm, rr5 cooperative, appropriate for age. 22:40 Pain: Complains of pain in left lower quadrant Pain radiates to abdomen Pain currently rr5 is 10 out of 10 on a pain scale. Quality of pain is described as aching, Pain began gradually, Is intermittent. Neuro: Level of Consciousness is awake, alert, obeys commands, Oriented to person, place, time, situation, Appropriate for age. Cardiovascular: Capillary refill < 3 seconds Patient's skin is warm and dry. Respiratory: Airway is patent Respiratory effort is even, unlabored, Respiratory pattern is regular, symmetrical. GI: Abdomen is round non-distended, Bowel sounds present X 4 quads. Abdomen is tender to palpation Guarding noted Reports lower abdominal pain, upper abdominal pain, nausea. : Denies burning with urination, pain. EENT: No signs and/or symptoms were reported regarding the EENT system. Derm: Skin is intact, is healthy with good turgor, Skin temperature is warm. Musculoskeletal: Circulation, motion, and sensation intact. Capillary refill < 3 seconds. 11/13 00:00 Reassessment: Patient appears in no apparent distress at this time. Patient is alert, rr5 oriented x 3, equal unlabored respirations, skin warm/dry/pink. Patient states symptoms have improved. Pain: Pain currently is 5 out of 10 on a pain scale. 00:35 Reassessment: Patient appears in no apparent distress at this time. Patient is alert, rr5 oriented x 3, equal unlabored respirations, skin warm/dry/pink. awaiting for urine specimen before discharge. 01:05 Reassessment: urine specimen sent additional order made. see MAR. rr5 01:30 Reassessment: Patient appears in no apparent distress at this time. Patient is alert, rr5 oriented x 3, equal unlabored respirations, skin warm/dry/pink. discharge instruction given and explained without complaints made. Vital Signs: 11/12 22:40 BP 135 / 74; Pulse 80; Resp 16; Temp 97.8; Pulse Ox 100% ; Weight 66.68 kg; Height 5 rr5 ft. 1 in. (154.94 cm); Pain 10/10; 23:00 BP 124 / 75; Pulse 73; Resp 17; Pulse Ox 99% ; rr5 11/13 00:00 BP 121 / 65; Pulse 62; Resp 19; Pulse Ox 99% on R/A; Pain 5/10; rr5 01:20 BP 129 / 70; Pulse 69; Resp 16; Temp 98; Pulse Ox 99% on R/A; rr5 11/12 22:40 Body Mass Index 27.78 (66.68 kg, 154.94 cm) rr5 ED Course: 11/12 22:35 Patient arrived in ED. cf2 22:40 Raymond Walsh MD is Attending Physician. tw4 22:40 Maintain EMS IV. Dressing intact. Good blood return noted. Site clean \T\ dry. Gauge \T\ rr 5 site: G20 right AC. 22:49 James Andrews RN is Primary Nurse. rr5 22:55 Triage completed. rr5 22:57 Arm band placed on right wrist. rr5 22:57 Patient has correct armband on for positive identification. Placed in gown. Bed in low rr5 position. Call light in reach. Side rails up X2. Pulse ox on. NIBP on. 11/13 00:09 CT Stone Protocol In Process Unspecified. EDMS 00:21 Ileana Becker MD is Referral Physician. tw4 01:30 No provider procedures requiring assistance completed. IV discontinued, intact, rr5 bleeding controlled, No redness/swelling at site. Pressure dressing applied. Administered Medications: 11/12 23:00 Drug: NS 0.9% 1000 ml Route: IV; Rate: 1 bolus; Site: right antecubital; rr5 11/13 01:25 Follow up: Response: No adverse reaction; IV Status: Completed infusion; IV Intake: rr5 1000ml 11/12 23:00 Drug: Zofran (Ondansetron) 4 mg Route: IVP; Site: right antecubital; rr5 11/13 00:00 Follow up: Response: No adverse reaction rr5 11/12 23:03 Drug: morphine 4 mg {Note: rass 0.} Route: IVP; Site: right antecubital; rr5 11/13 00:00 Follow up: Response: No adverse reaction; Pain is decreased; RASS: Alert and Calm (0) rr5 01:07 Drug: Rocephin 1 grams - ((cefTRIAXone) 1 grams, NS 0.9% 100 ml) Route: IVPB; Infused rr5 Over: 30 mins; Site: right antecubital; 01:30 Follow up: Response: No adverse reaction; IV Status: Completed infusion rr5 01:15 Drug: Potassium Effervescent Tablet 50 mEq Route: PO; rr5 01:30 Follow up: Response: No adverse reaction rr5 Intake: 01:25 IV: 1000ml; Total: 1000ml. rr5 Outcome: 00:22 Discharge ordered by . [email or web address] 01:30 Discharged to home ambulatory. rr5 01:30 Condition: stable 01:30 Discharge instructions given to patient, Instructed on discharge instructions, follow up and referral plans. medication usage, Demonstrated understanding of instructions, follow-up care, medications, Prescriptions given X 4. 01:31 Patient left the ED. rr5 Signatures: Dispatcher [employer] Raymond Whiteside MD MD tw4 James Andrews, RN RN rr5 Deanne Thompson cf2
--- NOTE | 2019-11-14 00:24 | EDPHYS ---
Physician Documentation [facility] Name: Tabatha Drew Age: 49 yrs Sex: Female : 1970 Arrival Date: 11/13/2019 Time: 22:35 Bed 6 Private MD: ED Physician Raymond Walsh HPI: 11/13 01:15 This 49 yrs old Female presents to ER via EMS with complaints of Abdominal tw4 Pain. 01:15 The patient complains of pain in the left mid back. The pain radiates to the left lower tw4 quadrant. Onset: The symptoms/episode began/occurred this morning, and became worse just prior to arrival. Modifying factors: The symptoms are alleviated by nothing. the symptoms are aggravated by nothing. Associated signs and symptoms: Pertinent positives: nausea. Severity of pain: At its worst the pain was severe in the emergency department the pain has improved mildly. The patient has experienced a previous episode, and the symptoms today are exactly the same. 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 - Social history:: Smoking status: unknown Patient uses alcohol, occasionally. Patient/guardian denies using street drugs. ROS: 11/13 01:15 Constitutional: Negative for fever, chills, and weight loss, Eyes: Negative for injury, tw4 pain, redness, and discharge, Cardiovascular: Negative for chest pain, palpitations, and edema, Respiratory: Negative for shortness of breath, cough, wheezing, and pleuritic chest pain, Abdomen/GI: Negative for abdominal pain, nausea, vomiting, diarrhea, and constipation, : Negative for injury, bleeding, discharge, and swelling, MS/Extremity: Negative for injury and deformity, Skin: Negative for injury, rash, and discoloration, Neuro: Negative for headache, weakness, numbness, tingling, and seizure. Back: Positive for pain at rest, flank pain, on the left, radiated pain, Negative for injury or acute deformity. Exam: 01:15 Constitutional: This is a well developed, well nourished patient who is awake, alert, tw4 and in no acute distress. Head/Face: Normocephalic, atraumatic. Chest/axilla: Normal chest wall appearance and motion. Nontender with no deformity. No lesions are appreciated. Cardiovascular: Regular rate and rhythm with a normal S1 and S2. No gallops, murmurs, or rubs. Normal PMI, no JVD. No pulse deficits. Respiratory: Lungs have equal breath sounds bilaterally, clear to auscultation and percussion. No rales, rhonchi or wheezes noted. No increased work of breathing, no retractions or nasal flaring. 01:15 MS/ Extremity: Pulses equal, no cyanosis. Neurovascular intact. Full, normal range of motion. Neuro: Awake and alert, GCS 15, oriented to person, place, time, and situation. Cranial nerves II-XII grossly intact. Motor strength 5/5 in all extremities. Sensory grossly intact. Cerebellar exam normal. Normal gait. Psych: Awake, alert, with orientation to person, place and time. Behavior, mood, and affect are within normal limits. 01:15 Constitutional: The patient appears alert, awake, in obvious distress, mildly distressed, in obvious pain. 01:15 Abdomen/GI: Inspection: bruising, Bowel sounds: normal, Palpation: moderate abdominal tenderness, in the left lower quadrant. 01:15 Back: pain, that is mild, ROM is normal, CVA tenderness, that is moderate, is noted on the left. Vital Signs: 11/12 22:40 BP 135 / 74; Pulse 80; Resp 16; Temp 97.8; Pulse Ox 100% ; Weight 66.68 kg; Height 5 rr5 ft. 1 in. (154.94 cm); Pain 10/10; 23:00 BP 124 / 75; Pulse 73; Resp 17; Pulse Ox 99% ; rr5 11/13 00:00 BP 121 / 65; Pulse 62; Resp 19; Pulse Ox 99% on R/A; Pain 5/10; rr5 01:20 BP 129 / 70; Pulse 69; Resp 16; Temp 98; Pulse Ox 99% on R/A; rr5 11/12 22:40 Body Mass Index 27.78 (66.68 kg, 154.94 cm) rr5 MDM: 11/12 22:40 Patient medically screened. 11/13 01:15 Differential diagnosis: nephrolithiasis, pyelonephritis, UTI. Data reviewed: vital tw4 signs, nurses notes. Data reviewed: lab test result(s), CBC, electrolytes, hepatic panel, urinalysis, hematuria. Data reviewed: radiologic studies, CT scan. Data interpreted: Pulse oximetry: Interpretation: normal. Counseling: I had a detailed discussion with the patient and/or guardian regarding: the historical points, exam findings, and any diagnostic results supporting the discharge/admit diagnosis, lab results, radiology results. Medication response: morphine markedly relieved the patient's pain. Symptoms have improved, Zofran relieved the patient's nausea. Response to treatment: and as a result, I will discharge patient, administer pain medication, acetaminophen. Special discussion: Based on the patient's Hx, exam, and Dx evaluation, there is no indication for emergent surgery or inpatient Tx. It is understood by the patient/guardian that if the Sx's persist or worsen they need to return immediately for re-evaluation. I discussed with the patient/guardian in detail that at this point there is no indication for admission to the hospital. It is understood, however, that if the symptoms persist or worsen the patient needs to return immediately for re-evaluation. 11/12 22:44 Order name: Basic Metabolic Panel; Complete Time: 01:05 11/13 01:06 Interpretation: Normal except: K 3.2; GLUC 134; GFR 82. 11/12 22:44 Order name: CBC with Diff; Complete Time: 01:05 11/13 01:07 Interpretation: Within normal limits. 11/12 22:44 Order name: Creatinine for Radiology; Complete Time: 01:05 11/13 01:07 Interpretation: Normal except: CRE 0.77; GFR 80. 11/12 22:44 Order name: Hepatic Function; Complete Time: 01:05 11/13 01:06 Interpretation: Normal except: GLOB 4.2; A/G 0.8. 11/12 22:44 Order name: Lipase; Complete Time: 01:05 11/13 01:07 Interpretation: Within normal limits: LIP 229. 11/12 22:44 Order name: Urine Microscopic Only 4 11/12 22:44 Order name: CT Stone Protocol [facility] 11/13 01:05 Order name: Urine Dipstick--Ancillary (enter results) 2 11/13 01:05 Order name: Urine --Ancillary (enter results) [facility] 11/12 22:44 Order name: IV Saline Lock; Complete Time: 23:01 [facility] 11/12 22:44 Order name: Labs collected and sent; Complete Time: 23:01 11/12 22:44 Order name: Urine Dipstick-Ancillary (obtain specimen); Complete Time: 01:04 4 11/12 22:44 Order name: Urine Test (obtain specimen); Complete Time: :04 Administered Medications: 11/12 23:00 Drug: NS 0.9% 1000 ml Route: IV; Rate: 1 bolus; Site: right antecubital; rr5 11/13 01:25 Follow up: Response: No adverse reaction; IV Status: Completed infusion; IV Intake: rr5 1000ml 11/12 23:00 Drug: Zofran (Ondansetron) 4 mg Route: IVP; Site: right antecubital; rr5 11/13 00:00 Follow up: Response: No adverse reaction rr5 11/12 23:03 Drug: morphine 4 mg {Note: rass 0.} Route: IVP; Site: right antecubital; rr5 11/13 00:00 Follow up: Response: No adverse reaction; Pain is decreased; RASS: Alert and Calm (0) rr5 01:07 Drug: Rocephin 1 grams - ((cefTRIAXone) 1 grams, NS 0.9% 100 ml) Route: IVPB; Infused rr5 Over: 30 mins; Site: right antecubital; 01:30 Follow up: Response: No adverse reaction; IV Status: Completed infusion rr5 01:15 Drug: Potassium Effervescent Tablet 50 mEq Route: PO; rr5 01:30 Follow up: Response: No adverse reaction rr5 Disposition: 11/14/19 00:22 Discharged to Home. Impression: Calculus of ureter, Hypokalemia. - Condition is Stable. - Discharge Instructions: Renal Colic, Urinary Tract Infection, Adult, Kidney Stones, [id number], Hypokalemia. - Prescriptions for Tylenol- Codeine #3 300-30 mg Oral Tablet - take 2 tablet by ORAL route every 6 hours As needed; 30 tablet. Zofran 4 mg Oral Tablet - take 1 tablet by ORAL route every 12 hours As needed; 6 tablet. Flomax 0.4 mg Oral Capsule, Sust. Release 24 hr - take 1 capsule by ORAL route once daily 1/2 hour following the same meal each day; 30 capsule. Tramadol 50 mg Oral Tablet - take 1 tablet by ORAL route every 8 hours as needed; 12 tablet. Macrobid 100 mg Oral Capsule - take 1 capsule by ORAL route every 12 hours for 14 days; 28 capsule. - Medication Reconciliation Form, Thank You Letter, Antibiotic Education, Prescription Opioid Use form. - Follow up: Private Physician; When: Upon discharge from the Emergency Department; Reason: Recheck today's complaints, Continuance of care, Re-evaluation by your physician. Follow up: Ileana Becker MD; When: Upon discharge from the Emergency Department; Reason: Recheck today's complaints, Continuance of care, Re-evaluation by your physician. - Problem is new. - Symptoms have improved. Signatures: Dispatcher [employer] EDMS Raymond Walsh MD MD tw4 James Andrews RN RN rr5 Corrections: (The following items were deleted from the chart) 01:08 00:22 11/14/2019 00:22 Discharged to Home. Impression: Calculus of ureter. Condition is tw4 Stable. Forms are Medication Reconciliation Form, Thank You Letter, Antibiotic Education, Prescription Opioid Use. Follow up: Private Physician; When: Upon discharge from the Emergency Department; Reason: Recheck today's complaints, Continuance of care, Re-evaluation by your physician. Follow up: Ileana Becker; When: Upon discharge from the Emergency Department; Reason: Recheck today's complaints, Continuance of care, Re-evaluation by your physician. Problem is new. Symptoms have improved. tw4 01:31 01:08 11/14/2019 00:22 Discharged to Home. Impression: Calculus of ureter; Hypokalemia. rr5 Condition is Stable. Discharge Instructions: Renal Colic, Kidney Stones, [id number]. Prescriptions for Tylenol-Codeine #3 300-30 mg Oral Tablet - take 2 tablet by ORAL route every 6 hours As needed; 30 tablet, Zofran 4 mg Oral Tablet - take 1 tablet by ORAL route every 12 hours As needed; 6 tablet, Flomax 0.4 mg Oral Capsule, Sust. Release 24 hr - take 1 capsule by ORAL route once daily 1/2 hour following the same meal each day; 30 capsule, Tramadol 50 mg Oral Tablet - take 1 tablet by ORAL route every 8 hours as needed; 12 tablet. and Forms are Medication Reconciliation Form, Thank You Letter, Antibiotic Education, Prescription Opioid Use. Follow up: Private Physician; When: Upon discharge from the Emergency Department; Reason: Recheck today's complaints, Continuance of care, Re-evaluation by your physician. Follow up: Ileana Becker; When: Upon discharge from the Emergency Department; Reason: Recheck today's complaints, Continuance of care, Re-evaluation by your physician. Problem is new. Symptoms have improved. tw4
[2019-11-14] MEDS ORDERED: CEFTRIAXONE/SWI 1gm 1 GM/10 ML SYR ONE (01:09)
[2019-11-14] MEDS ORDERED: POTASSIUM 25 MEQ EFFERV TAB ONE (01:15)
[2019-11-14 01:41] LABS: Urine Blood 3+ (NEG); Urine Glucose NEGATIVE (NEG); Urine Protein 2+ (NEG); Urine Specific Gravity >1.030 (1.005-1.030); Urine pH 5.5 (5.0-7.0)
[2019-11-14 01:42] VITALS: TEMP 97.8
[2019-11-14 01:42] LABS: Calcium Oxalate Crystals- Ur MODERATE (NONE SEEN); Urine Bacteria 20-50 /HPF (<20); Urine Culture Reflex Order REFLEXED; Urine RBC >50 /HPF (NONE SEEN)
[2019-11-14 01:47] VITALS: O2SAT 99
[2019-11-14 01:57] VITALS: BP 121/65
--- NOTE | 2019-11-14 09:01 | RAD REPORT ---
EXAM DESCRIPTION: Stone Protocol CLINICAL HISTORY: 49-year-old female with complaint of LEFT lower quadrant abdominal pain since appr oximately 3:00 PM today. COMPARISON: None. EXAMINATION: CT of the abdomen and pelvis was performed without intravenous or oral contrast. Multip lanar reformatted images were provided. This exam was performed according to our departmental dose op timization program which includes use of automated exposure control, adjustment of the mA and/or kV a ccording to patient size and/or use of iterative reconstruction technique. FINDINGS: Evaluation of solid organ pathology is limited secondary to lack of intravenous contrast. Within these limitations, the following observations are made. Chest: Evaluation through the lung bases reveals no focal opacity, pleural effusion or pneumothorax. Heart size is within normal limits. No pericardial effusion. Abdomen and pelvis: The liver, gallbladder, pancreas, spleen, bilateral kidneys and bilateral adrenal glands are within normal limits. Punctate calcification within the bilateral renal pelvis compatible with nonobstructing calculi. Mild hydronephrosis of the LEFT kidney with hydroureter secondary to ob structing calculus at the level of the proximal ureter measuring 2 mm, (series 201, image 63). The vessels are normal in caliber. No abdominopelvic lymph nodes are noted to be pathologically enlarged by CT measurement criteria. The bowel is within normal limits without abnormal bowel wall thickness or bowel dilation. No free air. No free abdominopelvic fluid collections. The appendix is within normal limits. The osseous structures reveal degenerative change of the L5-S1 level with vacuum disk phenomenon and small disk bulge with mild bilateral neuroforaminal narrowing. IMPRESSION: 1. Mild hydronephrosis of the LEFT kidney with hydroureter secondary to obstructing calculus at the l evel of the proximal ureter measuring 2 mm Electronically signed by: Dafne Paul MD 11/14/2019 12:06 AM CDT Due to temporary technical issues with the PACS/Fluency reporting system, reports are being signed by the in house radiologist as a courtesy to ensure prompt reporting. The interpreting radiologist is f ully responsible for the content of the report.
== END 2019-11-14 01:31 | disposition home or self-care (01) ==
LOC: ER 22:34
DX: N20.1 Calculus of ureter (principal); E87.6 Hypokalemia; J45.909 Unspecified asthma, uncomplicated; Z88.6 Allergy status to analgesic agent
CPT/HCPCS: 96365; 96361; 87088; 85025; 87086; 80048; 36415; 81025; 80076; 83690; 76377; 74176; 96375; 99284; J0696; J7030; J2405; 81003; 81015

== ENCOUNTER 2019-12-30 15:37 | Emergency (ER) | payer OTHER, SELFPAY ==
--- OUTSIDE RECORDS SUMMARY | 2019-12-30 15:39 | XMS REPORT ---
:1970 Author Organization [facility] t Address [address] [place] [address] Dr. Soto [address] [place] [id number] Care Team Providers Name Role Phone Unavailable Unavailable Unavailable Problems This patient has no known problems. Allergies, Adverse Reactions, Alerts This patient has no known allergies or adverse reactions. Medications This patient has no known medications.
--- NOTE | 2019-12-30 17:53 | ER ---
Nurse's Notes [facility] Name: Tabatha Drew Age: 49 yrs Sex: Female : 1970 Arrival Date: 12/30/2019 Time: 15:39 Bed 17 Private MD: Diagnosis: Cutaneous abscess of buttock Presentation: 12/29 15:44 Chief complaint: Patient states: buttock abscess noticed it last night. Reports hx of sv staph infection. Coronavirus screen: Proceed with normal triage. Patient denies a cough. Patient denies shortness of breath or difficulty breathing. Patient denies measured and/or subjective temperature greater than 100.4F prior to today's visit. Patient denies travel on a cruise ship or to a country the [facility] currently lists as an affected area. Patient denies contact with known and/or suspected case of COVID-19. Ebola Screen: No symptoms or risks identified at this time. Risk Assessment: Do you want to hurt yourself or someone else? Patient reports no desire to harm self or others. Onset of symptoms was December 28, 2019. 15:44 Method Of Arrival: Ambulatory sv 15:44 Acuity: SARAN 3 sv 15:48 Initial Sepsis Screen: Does the patient meet any 2 criteria? HR > 90 bpm. No. Patient's sv initial sepsis screen is negative. Does the patient have a suspected source of infection? Yes: Skin breakdown/wound. 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 - Social history:: Smoking status: Patient denies any tobacco usage or history of. Screenin:40 Abuse screen: Denies threats or abuse. Denies injuries from another. Nutritional ca1 screening: No deficits noted. Tuberculosis screening: No symptoms or risk factors identified. Fall Risk None identified. Assessment: 17:40 General: Appears in no apparent distress. comfortable, Behavior is calm, cooperative, ca1 appropriate for age. Pain: Complains of pain in buttocks. Neuro: Level of Consciousness is awake, alert, obeys commands, Oriented to person, place, time, situation. Derm: Skin is intact, is healthy with good turgor, Skin is pink, warm \T\ dry. Abscess located on buttocks and right gluteus will is dime sized, is red, is raised. Musculoskeletal: Circulation, motion, and sensation intact. Capillary refill < 3 seconds. Vital Signs: 15:45 BP 118 / 69; Pulse 92; Resp 16; Temp 98.1(O); Pulse Ox 96% ; Weight 62.6 kg; Height 5 sv ft. 1 in. (154.94 cm); 17:50 BP 121 / 72; Pulse 89; Resp 18 S; Pulse Ox 98% on R/A; ca1 15:45 Body Mass Index 26.07 (62.60 kg, 154.94 cm) sv ED Course: 15:39 Patient arrived in ED. as 15:45 Triage completed. sv 15:45 [facility]C [facility]. kb 15:45 González Curtis MD is Attending Physician. kb 15:45 Arm band placed on. sv 17:29 Dorothea Foley RN is Primary Nurse. ca1 17:40 Patient has correct armband on for positive identification. Bed in low position. Call ca1 light in reach. Side rails up X 1. Pulse ox on. NIBP on. 17:40 Placed in gown. ca1 17:40 No provider procedures requiring assistance completed. Patient did not have IV access ca1 during this emergency room visit. Administered Medications: 18:01 Drug: KeFLEX 500 mg Route: PO; ca1 18:02 Follow up: Response: Medication administered at discharge. ca1 18:05 Drug: Bactrim (160 mg-800 mg (DS) 1 tablet Route: PO; ca1 18:06 Follow up: Response: Medication administered at discharge. ca1 Outcome: 17:53 Discharge ordered by . kb 18:09 Discharged to home ambulatory. ca1 18:09 Condition: stable 18:09 Discharge instructions given to patient, Instructed on discharge instructions, follow up and referral plans. medication usage, Demonstrated understanding of instructions, follow-up care, medications, Prescriptions given X 3. 18:09 Patient left the ED. ca1 Signatures: Cely Zavala FNP-C FNP-Ckb Verde, Stephanie, RN RN sv Priya Bhatti as Dorothea Foley RN RN ca1
--- NOTE | 2019-12-30 17:53 | EDPHYS ---
Physician Documentation [facility] Name: Tabatha Drew Age: 49 yrs Sex: Female : 1970 Arrival Date: 12/30/2019 Time: 15:39 Bed 17 Private MD: REI Physician González Curtis HPI: 12/29 17:50 This 49 yrs old Female presents to ER via Ambulatory with complaints of kb recurrent staph infection. 17:50 The patient presents with an abscess of the right gluteus will. Description: kb erythematous, swollen. Onset: The symptoms/episode began/occurred last night. Possible cause(s): unknown. Associated signs and symptoms: Pertinent positives: erythema, swelling, Pertinent negatives: discharge, drainage, foreign body sensation, fever, headache, nausea, shortness of breath, vomiting. Modifying factors: the symptoms are alleviated by nothing, the symptoms are aggravated by nothing. Severity of symptoms: At their worst the symptoms were mild, in the emergency department the symptoms are unchanged. The patient has experienced similar episodes in the past, a few times. The patient has not recently seen a physician. Pt presents for staph infection to right buttock. States she had one in the same spot 3 months ago. . 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 - Social history:: Smoking status: Patient denies any tobacco usage or history of. ROS: 17:48 Constitutional: Negative for fever, chills, and weight loss, Neck: Negative for injury, kb pain, and swelling, Cardiovascular: Negative for chest pain, palpitations, and edema, Respiratory: Negative for shortness of breath, cough, wheezing, and pleuritic chest pain, Abdomen/GI: Negative for abdominal pain, nausea, vomiting, diarrhea, and constipation, Back: Negative for injury and pain, MS/Extremity: Negative for injury and deformity, Neuro: Negative for headache, weakness, numbness, tingling, and seizure. 17:48 Skin: Positive for abscess, of the right gluteus will. Exam: 17:48 Constitutional: This is a well developed, well nourished patient who is awake, alert, kb and in no acute distress. Head/Face: Normocephalic, atraumatic. Chest/axilla: Normal chest wall appearance and motion. Nontender with no deformity. No lesions are appreciated. Cardiovascular: Regular rate and rhythm with a normal S1 and S2. No gallops, murmurs, or rubs. Normal PMI, no JVD. No pulse deficits. Respiratory: Lungs have equal breath sounds bilaterally, clear to auscultation and percussion. No rales, rhonchi or wheezes noted. No increased work of breathing, no retractions or nasal flaring. Abdomen/GI: Soft, non-tender, with normal bowel sounds. No distension or tympany. No guarding or rebound. No evidence of tenderness throughout. MS/ Extremity: Pulses equal, no cyanosis. Neurovascular intact. Full, normal range of motion. Neuro: Awake and alert, GCS 15, oriented to person, place, time, and situation. Cranial nerves II-XII grossly intact. Motor strength 5/5 in all extremities. Sensory grossly intact. Cerebellar exam normal. Normal gait. 17:48 Skin: abscess, that is small, of the right gluteus will, with induration. Vital Signs: 15:45 BP 118 / 69; Pulse 92; Resp 16; Temp 98.1(O); Pulse Ox 96% ; Weight 62.6 kg; Height 5 sv ft. 1 in. (154.94 cm); 17:50 BP 121 / 72; Pulse 89; Resp 18 S; Pulse Ox 98% on R/A; ca1 15:45 Body Mass Index 26.07 (62.60 kg, 154.94 cm) sv MDM: 17:29 Patient medically screened. branden 17:47 Data reviewed: vital signs, nurses notes. Data interpreted: Pulse oximetry: on room air kb is 96 %. Interpretation: normal. Counseling: I had a detailed discussion with the patient and/or guardian regarding: the historical points, exam findings, and any diagnostic results supporting the discharge/admit diagnosis, the need for outpatient follow up, a family practitioner, to return to the emergency department if symptoms worsen or persist or if there are any questions or concerns that arise at home. 17:52 ED course: slight induration, no fluctuance noted. . kb Administered Medications: 18:01 Drug: KeFLEX 500 mg Route: PO; ca1 18:02 Follow up: Response: Medication administered at discharge. ca1 18:05 Drug: Bactrim (160 mg-800 mg (DS) 1 tablet Route: PO; ca1 18:06 Follow up: Response: Medication administered at discharge. ca1 Disposition: 12/30 14:34 Co-signature as Attending Physician, González Curtis MD I agree with the assessment and [facility] plan of care. Disposition: 12/30/19 17:53 Discharged to Home. Impression: Cutaneous abscess of buttock. - Condition is Stable. - Discharge Instructions: Skin Abscess, [id number]. - Prescriptions for Keflex 500 mg Oral Capsule - take 1 capsule by ORAL route every 8 hours for 10 days; 30 capsule. Bactrim DS 800- 160 mg Oral Tablet - take 1 tablet by ORAL route every 12 hours for 10 days; 20 tablet. Diflucan 150 mg Oral Tablet - take 1 tablet by ORAL route one time for 1 day; 1 tablet. - Medication Reconciliation Form, Thank You Letter, Antibiotic Education, Prescription Opioid Use form. - Follow up: Emergency Department; When: As needed; Reason: Worsening of condition. Follow up: Private Physician; When: 2 - 3 days; Reason: Recheck today's complaints, Continuance of care, Re-evaluation by your physician. Signatures: Cely Zavala FNP-C MICHAEL-Temi Scott RN RN sv Anderson, Corey, MD MD [facility] Center[facility]othea melo RN RN ca1 Corrections: (The following items were deleted from the chart) 12/29 18:09 17:53 12/30/2019 17:53 Discharged to Home. Impression: Cutaneous abscess of buttock. ca1 Condition is Stable. Forms are Medication Reconciliation Form, Thank You Letter, Antibiotic Education, Prescription Opioid Use. Follow up: Emergency Department; When: As needed; Reason: Worsening of condition. Follow up: Private Physician; When: 2 - 3 days; Reason: Recheck today's complaints, Continuance of care, Re-evaluation by your physician. kb
[2019-12-30] MEDS ORDERED: CEPHALEXIN 250 MG CAP ONE (18:07)
[2019-12-30] MEDS ORDERED: SMZ./TMP. 800/160 MG TABLET ONE (18:08)
[2019-12-30 18:54] VITALS: TEMP 98.1
[2019-12-30 18:55] VITALS: BP 121/72; O2SAT 98
== END 2019-12-30 18:09 | disposition home or self-care (01) ==
LOC: ER 15:37
DX: L02.31 Cutaneous abscess of buttock (principal); E66.9 Obesity, unspecified; Z88.6 Allergy status to analgesic agent
CPT/HCPCS: 99283

== ENCOUNTER 2020-09-18 18:51 | Emergency (ER) | payer SELFPAY ==
--- OUTSIDE RECORDS SUMMARY | 2020-09-18 18:53 | XMS REPORT | Continuity of Care Document ---
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 Me thodi e e st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 athy athy Asthma Problem Active 2019-09-09 Memor ia (disorder) 02:08:58 l Asthma [place] (disorder) Active Problem 09/09/2019 [facility] Lumbar Problem Active 2019-09-09 Memor ia radiculopa 02:08:58 l thy Lumbar [place] (disorder) radiculopa thy (disorder) Active Problem 09/09/2019 [facility] Morbid Problem Active 2019-09-09 Memor ia obesity 02:08:58 l (disorder) Morbid Herm santi obesity (disorder) Active Problem 09/09/2019 [facility] Peripheral Problem Active 2019-09-09 M emoria nerve 02:08:58 l disease Benjamin (disorder) Peripheral nerve disease (disorder) Active Problem 09/09/2019 [facility] Allergies, Adverse Reactions, Alerts Allergy Allergy Status Severity Reaction(s) Onset Inactive Treating Comm ents Source Name Type Date Date Clinician NSAIDs NSAIDs Active Memoria l [place] Social History Social Habit Start Date Stop Date Quantity Comments Source Sex Assigned At F [place] M ethodist Social History 2019-05-24 2019-05-24 [facility] Conner ermann 16:05:45 16:05:45 Medications Ordered Filled Start Stop Current Ordering Indication Dosage Frequency Signature Comments Components Source Medication Medication Date Date Medication? Clinician (SIG) Name Name gabapentin Yes 300 mg = 1 M emoria 300 MG Oral 05-24 cap, PO, l Capsule 15:57: TID, 0 Benjamin 00 Refill(s) Vital Signs Vital Name Observation Time Observation Value Comments Source Systolic (mm Hg) 2019-05-24 15:53:00 [place] rial [place] Diastolic (mm Hg) 2019-05-24 15:53:00 [facility] orial Benjamin Heart Rate 2019-05-24 15:53:00 [facility] Respitory Rate 2019-05-24 15:53:00 [facility] al [place] Height 2019-05-24 15:53:00 154.94 cm [facility] Weight 2019-05-24 15:53:00 [facility] BMI Calculated 2019-05-24 15:53:00 [facility] Procedures This patient has no known procedures. Plan of Care Planned Activity Planned Date Details Comments Source Future Scheduled 2020 BREAST CANCER [facility] thodist Test 00:00:00 SCREENING [code = BREAST CANCER SCREENING] Future Scheduled 2020 COLONOSCOPY SCREENING [place] [facility] Test 00:00:00 [code = COLONOSCOPY SCREENING] Future Scheduled 2020 SHINGLES VACCINES [place] [facility] 00:00:00 (#1) [code = SHINGLES VACCINES (#1)] Future Scheduled 2020-03-31 INFLUENZA VACCINE [place] [facility] 00:00:00 [code = INFLUENZA VACCINE] Future Scheduled 1991 Screening for [facility] thodist Test 00:00:00 malignant neoplasm of cervix (procedure) [code = 899614261] Future Scheduled 1986 COVID-19 VACCINE (1 [place] [facility] Test 00:00:00 of 2) [code = COVID-19 VACCINE (1 of 2)] Encounters Start End Encounter Admission Attending Care Care Encounter Source Date/Time Date/Time Type Type Clinicians Facility Department ID 2019-09-05 2019-09-06 Outpatient MHMISCHER MHMISCHER [id number] 12:03:41 23:59:59 00 2019-07-06 2019-07-06 Outpatient SANTA MckeonSCHER MHMANGOSCHER [id number] 09:15:00 09:15:00 Dante 02 [facility] 2019-05-24 2019-05-24 Outpatient Linda, DEMETRIOMISCHER MHMISCHER [id number] 10:45:00 23:59:59 Dante [facility] 2019-05-24 2019-05-24 Outpatient Linda MHMISCHER MHMISCHER [id number] 10:45:00 10:45:00 Dante 00 [facility] 2019-05-17 2019-05-17 Office Xander [facility] [id number] 15:39:24 15:54:24 Visit Satish S [place] [id number] Surgical [id number] Specialti [phone] [address] [place] 2019-05-17 2019-05-17 Orders Doctor DAVID [id number] 00:00:00 00:00:00 Only Unassigned, CHAO [id number] [facility] [id number] 009 2019-05-06 2019-05-06 Telephone [facility] [id number] 00:00:00 00:00:00 Propel [id number] Surgical [id number] Specialti [phone] [address] [place] 2019-05-03 2019-05-03 Telephone [facility] [id number] 00:00:00 00:00:00 Jus [email or web address] [id number] Surgical [id number] Specialti [phone] es [address] [place] 2019-04-28 2019-04-28 Telephone [facility] [id number] 00:00:00 00:00:00 Jus [email or web address] [id number] Surgical [id number] Specialti [phone] es [address] [place] 2019-04-27 2019-04-27 Orders Doctor DAVID [id number] 00:00:00 00:00:00 Only Unassigned, CHAO [id number] [place] [facility] [id number] 009 2019-04-26 2019-04-26 Telephone [facility] [id number] 00:00:00 00:00:00 Jus Matthews [place] [id number] Surgical [id number] Specialti [id number] es [address] [place] 2019-04-06 2019-04-06 [facility] [id number] 15:32:45 23:59:00 Encounter Jus Matthews [place] [id number] Surgical [id number] Specialti [id number] es 809 [place] 2019-04-06 2019-04-06 Office Xander [facility] [id number] 15:15:09 15:57:34 Visit Satish [place] [id number] Surgical [id number] Specialti [phone] es [address] [place] Results This patient has no known results.
--- OUTSIDE RECORDS SUMMARY | 2020-09-18 18:53 | XMS REPORT | Clinical Summary ---
:1970 Author Organization [facility] Address [address] [place] [address] Care Team Providers Name Role Phone Asked, Pcp Primary Care Provider Unavailable Allergies Not on File Medications Not on file Active Problems Problem Noted Date Idiopathic progressive polyneuropathy Social History Tobacco Use Types Packs/Day Years Used Date Never Assessed Sex Assigned at Date Recorded Female 05/12/2019 10:00 PM CDT Last Filed Vital Signs Not on file Plan of Treatment Health Maintenance Due Date Last Done Comments COVID-19 VACCINE (1 of 2) 1986 CERVICAL CANCER SCREENING 1991 INFLUENZA VACCINE 03/31/2020 BREAST CANCER SCREENING 2020 COLONOSCOPY SCREENING 2020 SHINGLES VACCINES (#1) 2020 Results Not on fileafter 09/18/2019 Advance Directives For more information, please contact: [phone] Type Date Recorded Patient Senior Manager Asset Protection Explanati on Advance Directives, Living Will and Medical Power of Java Core Developer
--- OUTSIDE RECORDS SUMMARY | 2020-09-18 18:53 | XMS REPORT | Continuity of Care Document ---
:1970 Author Organization [facility] [email or web address] Information [employer] Care Team Providers Name Role Phone [email or web address] [facility] Unavailable Un available Problems Problem Status Onset Classification Date Comments Sourc e Date Reported Asthma (disorder) Active Problem 09/09/2019 [facility] Lumbar Active Problem 09/09/2019 [facility] radiculopathy Neuro (disorder) Morbid obesity Active Problem 09/09/2019 Misc her (disorder) Neuro Peripheral nerve Active Problem 09/09/2019 Mi shell disease Neuro (disorder) Medications Medication Details Route Status Patient Ordering Order Source Instructions Provider Date gabapentin 300 300 mg = 1 Active 05/24/20 [facility] MG Oral cap, PO, 19 Neuro Capsule TID, 0 Refill(s) Allergies, Adverse Reactions, Alerts Substance Category Reaction Severity Reaction Status Date Comments S ource type Reported NSAIDs Assertion bleeding Drug Active [facility] allergy Neuro Immunizations No Data Provided for This Section Results No Data Provided for This Section Pathology Reports No Data Provided for This Section Diagnostic Reports No Data Provided for This Section Consultation Notes No Data Provided for This Section Discharge Summaries No Data Provided for This Section History and Physicals No Data Provided for This Section Vital Signs Vital Sign Value Date Comments Source Systolic (mm Hg) 128 05/24/2019 [facility] Greg ro Diastolic (mm Hg) 89 05/24/2019 [facility] Ne uro Heart Rate 82 05/24/2019 [facility] Neuro Respitory Rate 16 05/24/2019 [facility] Neuro Height 154.94 cm 05/24/2019 [facility] Neuro Weight 85.455 05/24/2019 [facility] Neuro BMI Calculated 35.6 05/24/2019 [facility] Neuro Encounters Location Location Encounter Encounter Reason Attending ADM [place] Stat Source Details Type Number For Provider Date Date Visit Outpatient [id number] Dante 05/24 Active [facility] Ambulatory [id number] Dante 05/24 05/24 [facility] Neurology Pre-Reg Kre Neuro [facility] MNA Outpatient [id number] Dante 05/24 05/25 [facility] Neuro [facility] Outpatient [id number] Dante 07/06 Active [facility] [id number] Dante 07/06 07/06 [facility] Neurology Pre-Reg [facility] Neuro Bradley MNA Outside [id number] 09/05 09/07 [facility] Neurology Medical /2019 Neuro Bradley Records Procedures No Data Provided for This Section Assessment and Plan No Data Provided for This Section Plan of Care No Data Provided for This Section Social History Social History Date Source Social History TypeResponse 05/24/2019 [facility] o Alcohol 1 Employment/School 2 Smoking Status Unknown if ever smoked; Exposure to [facility] liaison Smoke Unable to obtain; Cigarette Smoking Last 365 Days Unable to obtain; Reg Smoking Cessation Counseling No entered on: 05/24/19 11-2 drinks q 3-4 [id number] release med ical informationCoronal Nirmala- Daughter, Spouse- David natasha, Kevan natasha-Son Family History No Data Provided for This Section Advance Directives No Data Provided for This Section Functional Status No Data Provided for This Section
--- NOTE | 2020-09-18 19:57 | RAD REPORT ---
EXAM DESCRIPTION: CT - Head Brain Wo Cont - 09/18/2020 7:36 pm CLINICAL HISTORY: NUMBNESS COMPARISON: No comparisons TECHNIQUE: Axial 5 mm thick images of the head were obtained without IV contrast. All CT scans are performed using dose optimization technique as appropriate and may include automated exposure control or mA/KV adjustment according to patient size. FINDINGS: No intracranial hemorrhage, mass, edema or shift of mid-line structures. No acute infarcti on changes seen. No abnormal extra-axial fluid collections. Ventricles are normal. Mastoid air cells and visualized portions of the paranasal sinuses are clear. No acute bony findings. IMPRESSION: Negative non-contrast CT head examination.
--- NOTE | 2020-09-18 22:00 | ER ---
Nurse's Notes [facility] Name: Tabatha Drew Age: 50 yrs Sex: Female : 1970 Arrival Date: 09/18/2020 Time: 18:52 Bed External Waiting Private MD: Diagnosis: Presentation: 09/18 19:00 Chief complaint: Patient states: 30 mins OCCUPATIONAL THERAPY ASSIST, tingling all over my face. Tingling on ca1 fingers of R hand, R arm, L fingers, L hand and L arm. I also did not eat today. Denies weakness. Denies slurring. A\T\Ox4. VAN Negative. BGL 120. Coronavirus screen: Client denies travel out of the [place] in the last 14 days. At this time, the client does not indicate any symptoms associated with coronavirus-19. Ebola Screen: Patient negative for fever greater than or equal to 101.5 degrees Fahrenheit, and additional compatible Ebola Virus Disease symptoms Patient denies exposure to infectious person. Patient denies travel to an Ebola-affected area in the 21 days before illness onset. No symptoms or risks identified at this time. Initial Sepsis Screen: Does the patient meet any 2 criteria? No. Patient's initial sepsis screen is negative. Does the patient have a suspected source of infection? No. Patient's initial sepsis screen is negative. Risk Assessment: Do you want to hurt yourself or someone else? Patient reports no desire to harm self or others. Onset of symptoms was September 18, 2020. 19:00 Method Of Arrival: Ambulatory ca1 19:00 Acuity: SARAN 3 ca1 DENT REMOVER: 19:03 LMP N/A - Post-menopause ca1 Historical: - Allergies: 19:03 Aspirin; ca1 19:03 NSAIDS; ca1 - PMHx: 19:03 Asthma; Kidney stones; Obesity; ca1 - PSHx: 19:03 R wrist surgery; ca1 - Immunization history:: Flu vaccine is up to date. - Social history:: Smoking status: Patient denies any tobacco usage or history of. Assessment: 20:40 Reassessment: pt on phone with ER staff, requesting results on CT scan, pt informed sg that no results can be given over the phone and to please wait patiently for a bed assignment, pt stated she will be leaving from the parking lot in 15 mins. 21:30 Reassessment: pt called at phone number listed, no answer, pt not located in ER lobby sg at this time. 21:40 Reassessment: pt called at phone number listed, no answer, pt not located in ER lobby. sg 21:50 Reassessment: pt called at phone number listed, no answer, pt not located in ER lobby. sg Vital Signs: 19:00 BP 120 / 75; Pulse 91; Resp 16 S; Temp 97.8(TE); Pulse Ox 100% on R/A; Weight 63.5 kg ca1 (R); Height 5 ft. 1 in. (154.94 cm) (R); Pain 0/10; 19:00 Body Mass Index 26.45 (63.50 kg, 154.94 cm) ca1 ED Course: 18:52 Patient arrived in ED. ds1 19:03 Triage completed. ca1 19:03 Arm band placed on right wrist. ca1 19:36 CT Head Brain wo Cont In Process Unspecified. EDMS Administered Medications: No medications were administered Outcome: 21:59 Patient left the ED. sg Signatures: Dispatcher [employer] EDMS Alex Matthews RN RN sg Nayeli Taylor ds1 Dorothea Foley RN RN ca1 Corrections: (The following items were deleted from the chart) 19:06 19:00 Chief complaint: Patient states: 30 mins OCCUPATIONAL THERAPY ASSIST, tingling all over my face. Tingling ca1 on fingers of R hand, R arm, L fingers, hand and arm. I also did not eat today. Denies weakness. Denies slurring. A\T\Ox4. VAN Negative. BGL 120 ca1
[2020-09-18 22:12] VITALS: BP 120/75; TEMP 97.8; O2SAT 100
== END 2020-09-18 21:59 | disposition left against medical advice (07) ==
LOC: ER 18:51
DX: Z53.21 Procedure and treatment not carried out due to patient leaving prior to being seen by health care provider (principal)
CPT/HCPCS: 70450; 82947; 99282

== ENCOUNTER 2021-01-04 20:08 | Emergency (ER) | payer SELFPAY ==
--- OUTSIDE RECORDS SUMMARY | 2021-01-04 20:10 | XMS REPORT | Continuity of Care Document ---
:[address] [facility] t Address [address] [address] Care Team Providers Name Role Phone Asked, Pcp Primary Care Physician Unavailable Dragan Mckeon Attending Clinician Xander BRUNSON, S Attending Clinician Doctor Unassigned, Name Attending Clinician Unavailable Byron Bennett MD Attending Clinician Problems Condition Condition Condition Status Onset Resolution Last Treating Co mments Source Name Details Category Date Date Treatment Clinician Date Asthma Problem Active 2019-09-09 Memor ia (disorder) 02:08:58 l Asthma [place] (disorder) Active Problem 09/09/2019 [facility] Lumbar [...] disease (disorder) Active Problem 09/09/2019 [facility] Idiopathic Idiopathic Disease Active [facility] [place] progressiv progressiv Me thodi e e st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 athy athy Allergies, Adverse Reactions, Alerts Allergy Allergy Status Severity Reaction(s) Onset Inactive Treating Comm ents Source Name Type Date Date Clinician NSAIDs NSAIDs Active Sahra Alexander Social History Social Habit Start Date Stop Date Quantity Comments Source Social History 2019-05-24 2019-05-24 Vincenzo Prieto ermann 16:05:45 16:05:45 Sex Ass[birth year] At [birth year] F Aftab [place] ethodist 00:00:00 00:00:00 Medications Ordered Filled Start Stop Current Ordering Indication Dosage Frequency Signature Comments Components Source Medication Medication Date Date Medication? Clinician (SIG) Name Name gabapentin Yes 300 mg = 1 M emoria 300 MG Oral 05-24 cap, PO, l Capsule 15:57: TID, 0 Benjamin 00 Refill(s) Vital Signs Vital Name Observation Time Observation Value Comments Source Systolic (mm Hg) 2019-05-24 15:53:00 Sedrickhuber Alexander Diastolic (mm Hg) 2019-05-24 15:53:00 [facility] enriqueta Benjamin Heart Rate 2019-05-24 15:53:00 [facility] Respitory Rate 2019-05-24 15:53:00 [facility] Height 2019-05-24 15:53:00 154.94 cm [facility] Weight 2019-05-24 15:53:00 [facility] BMI Calculated 2019-05-24 15:53:00 [facility] Loaiza Procedures This patient has no known procedures. Plan of Care Planned Activity Planned Date Details Comments Source Future Scheduled 2021-03-31 INFLUENZA VACCINE [place] [facility] 00:00:00 [code = INFLUENZA VACCINE] Future Scheduled 2020 BREAST CANCER [facility] thodist Test 00:00:00 SCREENING [code = BREAST CANCER SCREENING] Future Scheduled 2020 COLONOSCOPY SCREENING [place] [facility] 00:00:00 [code = COLONOSCOPY SCREENING] Future Scheduled 2020 SHINGLES VACCINES [place] [facility] 00:00:00 (#1) [code = SHINGLES VACCINES (#1)] Future Scheduled 1991 Screening for [facility] thodist Test 00:00:00 malignant neoplasm of cervix (procedure) [code = 565196457] Future Scheduled 1988 Hepatitis C screening [place] [facility] 00:00:00 (procedure) [code = 541860301] Future Scheduled 1986 COVID-19 VACCINE (1) Maykel vivian [facility] Test 00:00:00 [code = COVID-19 VACCINE (1)] Encounters Start End Encounter Admission Attending Care Care Encounter Source Date/Time Date/Time Type Type Clinicians Facility Department ID 2019-09-05 2019-09-06 Outpatient MISCHER SANTASCHER [id number] 12:03:41 23:59:59 00 2019-07-06 2019-07-06 [id number] 09:15:00 09:15:00 Dante 02 [facility] 2019-05-24 2019-05-24 Outpatient [facility] [id number] 10:45:00 23:59:59 Dante [facility] 2019-05-24 2019-05-24 Outpatient [facility] [id number] 10:45:00 10:45:00 Dante 00 [facility] 2019-05-17 2019-05-17 Office YEYO Terrell [id number] 15:39:24 15:54:24 Visit Satish [employer] 350.1.13.10 Surgical [id number] Specialti [id number] [address] 2019-05-17 2019-05-17 Orders Doctor DAVID [id number] 00:00:00 00:00:00 Only Unassigned, CHAO 350.1.13.10 [place] [facility] 4.2.7.2.686 [id number] 009 2019-05-06 2019-05-06 Telephone Sabrina [facility] [id number] 00:00:00 00:00:00 Vidavee 350.1.13.10 Surgical 4.2.7.2.686 Specialti [id number] [address] 2019-05-03 2019-05-03 Telephone Sabrina [facility] [id number] 00:00:00 00:00:00 [employer] 350.1.13.10 Surgical 4.2.7.2.686 Specialti [id number] [address] 2019-04-28 2019-04-28 [facility] 1.2.840.114 [id number] 00:00:00 00:00:00 Jus Matthews [employer] 350.1.13.10 Surgical [id number] Specialti [phone] [address] 2019-04-27 2019-04-27 Orders Doctor DAVID 1.2.840.114 [id number] 00:00:00 00:00:00 Only Unassigned, CHAO 350.1.13.10 [place] [facility] 4.2.7.2.686 [id number] [id number] 2019-04-26 2019-04-26 Telephone [facility] 1.2.840.114 [id number] 00:00:00 00:00:00 Jus Matthews [employer] 350.1.13.10 Surgical [id number] Specialti [id number] [address] 2019-04-06 2019-04-06 [facility] 1.2.840.114 [id number] 15:32:45 23:59:00 Encounter Jus Matthews [employer] 350.1.13.10 Surgical 4.2.7.2.686 Specialti [id number] es [address] [place] 2019-04-06 2019-04-06 Office [facility] [id number] 15:15:09 15:57:34 Visit Satish Newell [employer] 350.1.13.10 Surgical 4.2.7.2.686 Specialti [phone] [address] [place] Results This patient has no known results.
--- NOTE | 2021-01-04 23:03 | ER ---
Nurse's Notes [facility] Name: Tabatha Drew Age: 50 yrs Sex: Female : 1970 Arrival Date: 01/04/2021 Time: 20:13 Bed Waiting Private MD: Diagnosis: Presentation: 01/04 20:30 Chief complaint: Patient states: thinks she had a reaction to tanning lotion, has some iw sores on her bottoms lip and nose , on , then today she felt like she was going to pass out and she did not feel like herself, not feeling good, felt nausea. Coronavirus screen: At this time, the client does not indicate any symptoms associated with coronavirus-19. Ebola Screen: Patient negative for fever greater than or equal to 101.5 degrees Fahrenheit, and additional compatible Ebola Virus Disease symptoms Patient denies exposure to infectious person. Patient denies travel to an Ebola-affected area in the 21 days before illness onset. No symptoms or risks identified at this time. Initial Sepsis Screen: Does the patient meet any 2 criteria? No. Patient's initial sepsis screen is negative. Does the patient have a suspected source of infection? No. Patient's initial sepsis screen is negative. Risk Assessment: Do you want to hurt yourself or someone else? Patient reports no desire to harm self or others. Onset of symptoms was December 31, 2020. 20:30 Method Of Arrival: Ambulatory iw 20:30 Acuity: SARAN 3 iw Historical: - Allergies: 20:34 Aspirin; iw 20:34 NSAIDS; iw - Home Meds: 20:34 phentermine oral oral [Active]; iw - PMHx: 20:34 Asthma; Kidney stones; Obesity; iw - PSHx: 20:34 R wrist surgery; iw - Immunization history:: Adult Immunizations up to date. - Social history:: Smoking status: Patient denies any tobacco usage or history of. Assessment: 22:56 Reassessment: not in lobby. iw Vital Signs: 20:30 BP 125 / 81; Pulse 84; Resp 16; Pulse Ox 100% on R/A; Weight 63.5 kg; Height 5 ft. 1 iw in. (154.94 cm); 20:30 Body Mass Index 26.45 (63.50 kg, 154.94 cm) iw ED Course: 20:13 Patient arrived in ED. cf2 20:33 Triage completed. iw 20:34 Arm band placed on. iw 23:02 Patient's name was called from ER lobby. No response. Unable to locate patient. Will bb disposition as left without being seen by a provider. Administered Medications: No medications were administered Outcome: 23:03 Patient left the ED. bb Signatures: Jeni Blackmon RN RN bb Michelle Holguin RN RN iw Deanne [place] cf2
[2021-01-04 23:15] VITALS: BP 125/81; O2SAT 100
== END 2021-01-04 23:03 | disposition left against medical advice (07) ==
LOC: ER 20:08
DX: Z53.21 Procedure and treatment not carried out due to patient leaving prior to being seen by health care provider (principal)
CPT/HCPCS: 99281

== ENCOUNTER 2021-01-05 12:10 | Emergency (ER) | payer SELFPAY ==
--- OUTSIDE RECORDS SUMMARY | 2021-01-05 12:13 | XMS REPORT | Continuity of Care Document ---
:1970 Author Organization [facility] t Address [address] [place] [address] Care Team Providers Name Role Phone Asked, Pcp Primary Care Physician Unavailable Dragan Mckeon Attending Clinician Xander BRUNSON, S Attending Clinician Doctor Unassigned, Name Attending Clinician Unavailable Byron Bennett MD Attending Clinician Problems Condition Condition Condition Status Onset Resolution Last Treating Co mments Source Name Details Category Date Date Treatment Clinician Date Asthma Problem Active 2019-09-09 Memor ia (disorder) 02:08:58 l Asthma [place] (disorder) Active Problem 09/09/2019 [facility] Lumbar [...] Sedrickhuber Alexander Diastolic (mm Hg) 2019-05-24 15:53:00 [facility] enriqueta [address] Heart Rate 2019-05-24 15:53:00 [facility] Respitory Rate 2019-05-24 15:53:00 [facility] Height 2019-05-24 15:53:00 154.94 cm [facility] Weight 2019-05-24 15:53:00 [facility] BMI Calculated 2019-05-24 15:53:00 [facility] Procedures This patient has no known procedures. Plan of Care Planned Activity Planned Date Details Comments Source Future Scheduled 2021-03-31 INFLUENZA VACCINE [place] [facility] 00:00:00 [code = INFLUENZA VACCINE] Future Scheduled 2020 BREAST CANCER [facility] thodist Test 00:00:00 SCREENING [code = BREAST CANCER SCREENING] Future Scheduled 2020 COLONOSCOPY SCREENING [place] [facility] 00:00:00 [code = COLONOSCOPY SCREENING] Future Scheduled 2020 SHINGLES VACCINES [place] [facility] 00:00:00 (#1) [code = SHINGLES VACCINES (#1)] Future Scheduled 1991 Screening for [facility] thodist Test 00:00:00 malignant neoplasm of cervix (procedure) [code = 256926002] Future Scheduled 1988 Hepatitis C screening [place] [facility] Test 00:00:00 (procedure) [code = 862971181] Future Scheduled 1986 COVID-19 VACCINE (1) Maykel vivian [facility] Test 00:00:00 [code = COVID-19 VACCINE (1)] Encounters Start End Encounter Admission Attending Care Care Encounter Source Date/Time Date/Time Type Type Clinicians Facility Department ID 2019-09-05 2019-09-06 Outpatient MISCHER SANTASCHER [id number] 12:03:41 23:59:59 00 2019-07-06 2019-07-06 [facility] [id number] 09:15:00 09:15:00 Dante 02 [facility] 2019-05-24 2019-05-24 [facility] [id number] 10:45:00 23:59:59 Dante [facility] 2019-05-24 2019-05-24 [facility] [id number] 10:45:00 10:45:00 Dante 00 [facility] 2019-05-17 2019-05-17 Office YEYO Terrell 1.2.840.114 [id number] 15:39:24 15:54:24 Visit Satish Wistron [employer] 350.1.13.10 Surgical 4.2.7.2.686 Specialti [id number] [address] 2019-05-17 2019-05-17 Orders Doctor DAVID 1.2.840.114 [id number] 00:00:00 00:00:00 Only Unassigned, CHAO 350.1.13.10 [place] [facility] 4.2.7.2.686 [id number] 009 2019-05-06 2019-05-06 Telephone Sabrina [facility] 1.2.840.114 [id number] 00:00:00 00:00:00 [place] 350.1.13.10 Surgical 4.2.7.2.686 Specialti [id number] [address] 2019-05-03 2019-05-03 Telephone Sabrina [facility] 1.2.840.114 [id number] 00:00:00 00:00:00 [employer] 350.1.13.10 Surgical 4.2.7.2.686 Specialti [id number] [address] 2019-04-28 2019-04-28 [facility] 1.2.840.114 [id number] 00:00:00 00:00:00 Jus Matthews [employer] 350.1.13.10 Surgical 4.2.7.2.686 Specialti [id number] [address] 2019-04-27 2019-04-27 Orders Doctor DAVID 1.2.840.114 [id number] 00:00:00 00:00:00 Only Unassigned, CHAO 350.1.13.10 [place] [facility] 4.2.7.2.686 [id number] 009 2019-04-26 2019-04-26 Telephone [facility] 1.2.840.114 [id number] 00:00:00 00:00:00 Jus Matthews [employer] 350.1.13.10 Surgical 4.2.7.2.686 Specialti [id number] [address] 2019-04-06 2019-04-06 [facility] 1.2.840.114 [id number] 15:32:45 23:59:00 Encounter Jus Matthews [employer] 350.1.13.10 Surgical 4.2.7.2.686 Specialti [id number] es [address] 2019-04-06 2019-04-06 Office [facility] 1.2.840.114 [id number] 15:15:09 15:57:34 Visit Satish Newell [employer] 350.1.13.10 Surgical 4.2.7.2.686 Specialti [id number] [address] Results This patient has no known results.
--- NOTE | 2021-01-05 13:10 | RAD REPORT ---
EXAM DESCRIPTION: RAD - Chest Single View - 01/05/2021 1:03 pm CLINICAL HISTORY: Nausea, fatigue Chest pain. COMPARISON: Chest Pa And Lat (2 Views) dated 05/27/2018; Chest Pa And Lat (2 Views) dated 05/17/2018; ABDOMEN ACUTE SERIES dated 06/02/2011; CHEST PA AND LAT 2 VIEW dated 06/20/2004 FINDINGS: Portable technique limits examination quality. The lungs are grossly clear. The heart is normal in size. No displaced fractures. IMPRESSION: No acute intrathoracic process suspected.
[2021-01-05 13:28] LABS: Absolute Lymphocytes (CBC) 1.6 K/uL (0.7-4.9); Basophils % 0.4 % (0-1.3); Lymphocytes % 20.5 % (15.3-44.8); MPV 8.1 fL (7.6-11.3); RBC Red Blood Cell Count 4.61 M/uL (3.86-4.86)
[2021-01-05 13:35] LABS: Protime INR 1.03
[2021-01-05] MEDS ORDERED: ONDANSETRON 4 MG/2 ML VIAL ONE (13:52)
[2021-01-05] MEDS ORDERED: NA CHLORIDE 0.9% 1,000 ML ONE (13:53)
[2021-01-05 13:55] LABS: ALT/SGPT 20 U/L (12-78); AST/SGOT 21 U/L (15-37); Albumin 3.6 g/dL (3.4-5.0); Alkaline Phosphatase 82 U/L (45-117); BUN Blood Urea Nitrogen 15 mg/dL (7-18); Bicarbonate 30 mmol/L (21-32); Bilirubin Direct 0.1 mg/dL (0-0.2); Bilirubin Total 0.4 mg/dL (0.2-1.0); Creatine Phosphokinase 183 U/L (26-192); Glucose Level 113 mg/dL (74-106); Potassium 3.4 mmol/L (3.5-5.1); Protein, Total 7.8 g/dL (6.4-8.2); Sodium Level 141 mmol/L (136-145); Troponin (Emerg Dept Use Only) < 0.02 ng/mL (0.0-0.045)
[2021-01-05 13:56] LABS: Magnesium 2.3 mg/dL (1.8-2.4); NT PRO-BNP 17 pg/mL (<125)
[2021-01-05] MEDS ORDERED: PROMETHAZINE INJ 25 MG/ML AMP ONE (13:59)
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
[2021-01-05 15:48] LABS: Urine Blood Negative (Negative); Urine Glucose Negative (Negative); Urine Protein Negative (Negative); Urine Specific Gravity >=1.030 (1.005-1.030)
[2021-01-05 15:59] LABS: Urine Specific Gravity/Preg >1.030 (1.005-1.030)
[2021-01-05 16:33] VITALS: TEMP 97.5
[2021-01-05 16:36] VITALS: BP 112/86; O2SAT 99
== END 2021-01-05 16:17 | disposition home or self-care (01) ==
LOC: ER 12:10
DX: R11.0 Nausea (principal); J45.909 Unspecified asthma, uncomplicated
CPT/HCPCS: 36415; 71045; 80048; 80076; 81003; 81025; 82550; 83735; 83880; 84484; 85025; 85610; 93005; 96361; 96374; 99284; J2405; J2550; J7030

== ENCOUNTER 2021-09-09 00:07 | Emergency (ER) | payer SELFPAY ==
--- OUTSIDE RECORDS SUMMARY | 2021-09-09 00:09 | XMS REPORT | Continuity of Care Document ---
:1970 Author Organization [facility] t Address [address] [place] [address] Care Team Providers Name Role Phone Reece Rubio Attending Clinician Doctor Unassigned, Name Attending Clinician Unavailable Byron Bennett MD Attending Clinician Problems This patient has no known problems. Allergies, Adverse Reactions, Alerts This patient has no known allergies or adverse reactions. Medications This patient has no known medications. Procedures This patient has no known procedures. Encounters Start End Encounter Admission Attending Care Care Encounter Source Date/Time Date/Time Type Type Clinicians Facility Department ID 2019-05-17 2019-05-17 Office YEYO Terrell [id number] 15:39:24 15:54:24 Visit [facility] [id number] Surgical [id number] Specialti [id number] [address] [place] 2019-05-17 2019-05-17 Orders Doctor DAVID [id number] 00:00:00 00:00:00 Only Unassigned, CHAO [id number] [place] [facility] [id number] 009 2019-05-06 2019-05-06 Telephone YEYO Bennett [id number] 00:00:00 00:00:00 [facility] [id number] Surgical [id number] Specialti [id number] [address] [place] 2019-05-03 2019-05-03 Telephone [facility] [id number] 00:00:00 00:00:00 [facility] [id number] Surgical [id number] Specialti [id number] [address] [place] 2019-04-28 2019-04-28 Telephone [facility] [id number] 00:00:00 00:00:00 [facility] [id number] Surgical [id number] Specialti [id number] [address] [place] 2019-04-27 2019-04-27 Orders Doctor DAVID [id number] 00:00:00 00:00:00 Only Unassigned, CHAO [id number] [place] [facility] [id number] 009 2019-04-26 2019-04-26 Telephone [facility] [id number] 00:00:00 00:00:00 [facility] [id number] Surgical [id number] Specialti [id number] [address] [place] 2019-04-06 2019-04-06 [facility] [id number] 15:32:45 23:59:00 Encounter [facility] [id number] Surgical [id number] Specialti [id number] [address] [place] 2019-04-06 2019-04-06 Office [facility] [id number] 15:15:09 15:57:34 Visit [facility] [id number] Surgical [id number] Specialti [id number] [address] [place] Results This patient has no known results.
[2021-09-09] MEDS ORDERED: NA CHLORIDE 0.9% 1,000 ML ONE ×2 (00:59→02:43)
--- NOTE | 2021-09-09 03:22 | ER ---
Nurse's Notes [facility] Name: Tabatha Drew Age: 51 yrs Sex: Female : 1970 Arrival Date: 09/09/2021 Time: 00:15 Bed 8 Private MD: Diagnosis: Orthostatic hypotension;Adverse effect of benzodiazepines Presentation: 09/09 00:15 Chief complaint: EMS states: pt was outside on her porch when she started feeling sm5 lightheaded and like she was going to pass out. sbp for ems was in the 70's, weak pulse, not mentating fully. pt a\T\o x3 now. Coronavirus screen: Vaccine status: Patient reports receiving the 2nd dose of the covid vaccine. Ebola Screen: No symptoms or risks identified at this time. Initial Sepsis Screen: Does the patient meet any 2 criteria? No. Patient's initial sepsis screen is negative. Does the patient have a suspected source of infection? No. Patient's initial sepsis screen is negative. Risk Assessment: Do you want to hurt yourself or someone else? Patient reports no desire to harm self or others. Onset of symptoms was September 09, 2021. 00:15 Method Of Arrival: EMS: [facility] 00:15 Acuity: SARAN 3 sm5 Triage Assessment: 00:15 General: Appears in no apparent distress. Behavior is drowsy. Pain: Denies pain. Neuro: sm5 Level of Consciousness is awake, alert, Oriented to person, place, time, situation. Cardiovascular: No deficits noted. Capillary refill < 3 seconds Patient's skin is warm and dry. Respiratory: No deficits noted. Airway is patent Trachea midline Respiratory effort is even, unlabored. GI: No deficits noted. 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 - Social history:: Smoking status: Patient denies any tobacco usage or history of. Screenin:19 Abuse screen: Denies threats or abuse. Denies injuries from another. Nutritional sm5 screening: No deficits noted. Tuberculosis screening: No symptoms or risk factors identified. Fall Risk No fall in past 12 months (0 pts). No secondary diagnosis (0 pts). IV access (20 points). Ambulatory Aid- None/Bed Rest/Nurse Assist (0 pts). Gait- Normal/Bed Rest/Wheelchair (0 pts) Mental Status- Oriented to own ability (0 pts). Total Ayers Fall Scale indicates No Risk (0-24 pts). Assessment: 00:23 General: no EKG per Kimberlee SURVEY PARTY CHIEF as pt refused EKG. tw5 01:04 Reassessment: while doing orthostatics on pt, pt stated she was really sleepy and it sm5 must be from the xanax she took. pt stated she only took 0.25mg of xanax because she was feeling anxious that she was going to pass out.. 01:04 Reassessment: Reassessment: still drowsy. Pain: Denies pain. Neuro: Level of mk Consciousness is awake, alert, obeys commands, Oriented to person, place, time, Retail And Promotions Coordinator are equal bilaterally Moves all extremities. Gait is steady, Speech is normal, Reports a syncopal episode. Cardiovascular: Heart tones S1 S2 present Capillary refill < 3 seconds fingers toes Pulses are 2+ in right radial artery, right dorsalis pedis artery, left radial artery and left dorsalis pedis artery Rhythm is regular. Cardiovascular: Rhythm is sinus rhythm. Cardiovascular: Parent/caregiver reports patient has had syncope, since JUST BULLDOGGER, UNREADABLE BP ON SCENE. Respiratory: Respiratory: Airway is patent Trachea midline Respiratory effort is even, unlabored, Respiratory pattern is regular, symmetrical, Breath sounds are clear. GI: Abdomen is flat, non-distended, Bowel sounds present X 4 quads. Abd is soft and non tender X 4 quads. : No signs and/or symptoms were reported regarding the genitourinary system. Derm: Skin is intact, with poor turgor Skin is dry, Skin temperature is warm. Musculoskeletal: Circulation, motion, and sensation intact. Capillary refill < 3 seconds, fingers. toes. Range of motion: intact in all extremities. 02:05 Reassessment: No changes from previously documented assessment. Patient and/or family mk updated on plan of care and expected duration. Pain level reassessed. Patient is alert, oriented x 3, equal unlabored respirations, skin warm/dry/pink. 03:05 Reassessment: No changes from previously documented assessment. Patient and/or family mk updated on plan of care and expected duration. Pain level reassessed. Patient is alert, oriented x 3, equal unlabored respirations, skin warm/dry/pink. Vital Signs: 00:15 BP 91 / 61; Pulse 75; Resp 12; Temp 97.9(O); Pulse Ox 100% on R/A; sm5 00:53 BP 96 / 53 Supine; Pulse 66; Resp 15; Pulse Ox 100% on R/A; sm5 00:58 BP 102 / 59 Sitting; Pulse 78; Resp 14; Pulse Ox 100% ; sm5 01:03 BP 82 / 49 Standing; Pulse 77; Resp 14; Pulse Ox 100% ; sm5 01:30 BP 98 / 56; Pulse 60; Resp 18; Pulse Ox 100% on R/A; mk 02:00 BP 106 / 75; Pulse 87; Resp 18; Pulse Ox 95% on R/A; mk 02:30 BP 92 / 52 Supine; Pulse 74; Resp 16; Pulse Ox 100% on R/A; sm5 02:33 BP 91 / 50 Sitting; Pulse 67; Resp 15; Pulse Ox 100% ; sm5 02:37 BP 84 / 51 Standing; Pulse 72; Resp 18; Pulse Ox 100% ; sm5 03:19 BP 96 / 47 Supine; Pulse 76; sm5 03:23 BP 106 / 70 Sitting; Pulse 72; sm5 03:27 BP 94 / 60 Standing; Pulse 77; sm5 Patrick Coma Score: 00:40 Eye Response: spontaneous(4). Verbal Response: oriented(5). Motor Response: obeys mk commands(6). Total: 15. 01:30 Eye Response: spontaneous(4). Verbal Response: oriented(5). Motor Response: obeys mk commands(6). Total: 15. 01:30 Eye Response: spontaneous(4). Verbal Response: oriented(5). Motor Response: obeys mk commands(6). Total: 15. 02:00 Eye Response: spontaneous(4). Verbal Response: oriented(5). Motor Response: obeys mk commands(6). Total: 15. 02:30 Eye Response: spontaneous(4). Verbal Response: oriented(5). Motor Response: obeys mk commands(6). Total: 15. 03:25 Eye Response: spontaneous(4). Verbal Response: oriented(5). Motor Response: obeys mk commands(6). Total: 15. ED Course: 00:15 Patient arrived in ED. sm5 00:16 Rivera Mohan NP is PHCP. pm1 00:16 González Curtis MD is Attending Physician. pm1 00:18 Marie Fernández is Primary Nurse. tw5 00:19 Triage completed. sm5 00:20 Patient has correct armband on for positive identification. Bed in low position. Call sm5 light in reach. Side rails up X2. 00:20 Arm band placed on right wrist. Patient placed in an exam room, on site monitor, on sm5 pulse oximetry. EKG completed in triage. Results shown to MD. 00:20 personnel monitor on. Pulse ox on. NIBP on. mk 01:00 Maintain EMS IV. Dressing intact. Good blood return noted. Site clean \T\ dry. mk 02:40 Inserted saline lock: 18 gauge in right antecubital area, using aseptic technique. mk 03:20 No provider procedures requiring assistance completed. IV discontinued, intact, mk bleeding controlled, No redness/swelling at site. 03:36 Primary Nurse role handed off by Marie Fernández 03:36 Gabbie Briggs, NICHOLAS is Primary Nurse. mk Administered Medications: 01:08 Drug: NS 0.9% 1000 ml Route: IV; Rate: 1000 ml; Site: left antecubital; sm5 02:54 Drug: NS 0.9% 1000 ml Route: IV; Rate: 1000 ml; Site: right antecubital; Outcome: 03:21 Discharge ordered by . pm1 03:30 Discharged to home ambulatory, via wheelchair, with family. mk 03:30 Condition: stable 03:30 Discharge instructions given to patient, family. 03:36 Patient left the ED. mk Signatures: Rivera Mohan NP SURVEY PARTY CHIEF pm1 Marie Fernández tw5 Dafne Newsome RN RN 5 Gabbie Briggs, NICHOLAS shields Corrections: (The following items were deleted from the chart) 00:26 00:23 General: no EKG per Kimberlee FAUST. tw5 tw5 01:08 00:58 BP 82 / 49; Pulse 77bpm; Resp 14bpm; Pulse Ox 100%; sm5 sm5 05:12 01:04 Reassessment: mk mk
--- NOTE | 2021-09-09 03:22 | EDPHYS ---
Physician Documentation [facility] Name: Tabatha Drew Age: 51 yrs Sex: Female : 1970 Arrival Date: 09/09/2021 Time: 00:15 Bed 8 Private MD: ED Physician González Curtis HPI: 09/09 00:33 This 51 yrs old Unknown Female presents to ER via EMS with complaints of Dizziness. pm1 00:33 The patient presents with feeling faint. Onset: The symptoms/episode began/occurred pm1 just prior to arrival. Context: occurred at home, just prior to the episode the patient experienced no apparent symptoms. Modifying factors: The symptoms are alleviated by lying down. Associated signs and symptoms: Pertinent negatives: abdominal pain, chest pain, nausea, shortness of breath, vomiting. Severity of symptoms: in the emergency department the symptoms have improved with IV fluid given by EMS, Pain is currently a 0 / 10. The patient has not experienced similar symptoms in the past. The patient has not recently seen a physician. patient attributes her dizziness due to decreased PO intake from work. 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 - Social history:: Smoking status: Patient denies any tobacco usage or history of. ROS: 00:33 Constitutional: Negative for fever, chills, and weight loss, Cardiovascular: Negative pm1 for chest pain, palpitations, and edema, Respiratory: Negative for shortness of breath, cough, wheezing, and pleuritic chest pain, Abdomen/GI: Negative for abdominal pain, nausea, vomiting, diarrhea, and constipation, MS/Extremity: Negative for injury and deformity, Skin: Negative for injury, rash, and discoloration. 00:33 Neuro: Positive for dizziness, Negative for numbness, tingling, weakness. 00:33 All other systems are negative. Exam: 00:33 Constitutional: This is a well developed, well nourished patient who is awake, alert, pm1 and in no acute distress. Head/Face: Normocephalic, atraumatic. 00:33 Back: No spinal tenderness. No costovertebral tenderness. Full range of motion. Skin: Warm, dry with normal turgor. Normal color with no rashes, no lesions, and no evidence of cellulitis. MS/ Extremity: Pulses equal, no cyanosis. Neurovascular intact. Full, normal range of motion. 00:33 Cardiovascular: Exam negative for acute changes, Rate: normal, Rhythm: regular, Pulses: no pulse deficits are appreciated, Heart sounds: normal, normal S1and S2. 00:33 Respiratory: Exam negative for acute changes, respiratory distress, shortness of breath, Breath sounds: are clear throughout. 00:33 Abdomen/GI: Exam negative for acute changes, Inspection: abdomen appears normal, Palpation: abdomen is soft and non-tender, in all quadrants. 00:33 Neuro: Exam negative for acute changes, Orientation: is normal, Mentation: is normal, Motor: is normal, moves all fours. Vital Signs: 00:15 BP 91 / 61; Pulse 75; Resp 12; Temp 97.9(O); Pulse Ox 100% on R/A; sm5 00:53 BP 96 / 53 Supine; Pulse 66; Resp 15; Pulse Ox 100% on R/A; sm5 00:58 BP 102 / 59 Sitting; Pulse 78; Resp 14; Pulse Ox 100% ; sm5 01:03 BP 82 / 49 Standing; Pulse 77; Resp 14; Pulse Ox 100% ; sm5 01:30 BP 98 / 56; Pulse 60; Resp 18; Pulse Ox 100% on R/A; mk 02:00 BP 106 / 75; Pulse 87; Resp 18; Pulse Ox 95% on R/A; mk 02:30 BP 92 / 52 Supine; Pulse 74; Resp 16; Pulse Ox 100% on R/A; sm5 02:33 BP 91 / 50 Sitting; Pulse 67; Resp 15; Pulse Ox 100% ; sm5 02:37 BP 84 / 51 Standing; Pulse 72; Resp 18; Pulse Ox 100% ; sm5 03:19 BP 96 / 47 Supine; Pulse 76; sm5 03:23 BP 106 / 70 Sitting; Pulse 72; sm5 03:27 BP 94 / 60 Standing; Pulse 77; sm5 Patrick Coma Score: 00:40 Eye Response: spontaneous(4). Verbal Response: oriented(5). Motor Response: obeys mk commands(6). Total: 15. 01:30 Eye Response: spontaneous(4). Verbal Response: oriented(5). Motor Response: obeys mk commands(6). Total: 15. 01:30 Eye Response: spontaneous(4). Verbal Response: oriented(5). Motor Response: obeys mk commands(6). Total: 15. 02:00 Eye Response: spontaneous(4). Verbal Response: oriented(5). Motor Response: obeys mk commands(6). Total: 15. 02:30 Eye Response: spontaneous(4). Verbal Response: oriented(5). Motor Response: obeys mk commands(6). Total: 15. 03:25 Eye Response: spontaneous(4). Verbal Response: oriented(5). Motor Response: obeys mk commands(6). Total: 15. MDM: 00:17 Patient medically screened. branden 00:30 Refusal of service: The patient/guardian displays adequate decision making capability pm1 and despite a detailed discussion of alternatives, benefits, risks, and consequences refuses: CT Scan, all lab tests, EKG. 00:30 ED course: Since patient refused a work up, will get orthostatics, infuse IV fluids and pm1 reevaluate the patient. 00:32 Data reviewed: vital signs. Data interpreted: Pulse oximetry: on room air is 100 %. pm1 Interpretation: normal. 00:57 ED course: Patient reported taking xanax. pm1 03:19 Counseling: I had a detailed discussion with the patient and/or guardian regarding: the pm1 historical points, exam findings, and any diagnostic results supporting the discharge/admit diagnosis, the need for outpatient follow up, a family practitioner, cessation of benzodiazepine due to side effect of hypotension, to return to the emergency department if symptoms worsen or persist or if there are any questions or concerns that arise at home. 09/09 00:32 Order name: Orthostatics; Complete Time: 01:03 pm1 Administered Medications: 01:08 Drug: NS 0.9% 1000 ml Route: IV; Rate: 1000 ml; Site: left antecubital; 5 02:54 Drug: NS 0.9% 1000 ml Route: IV; Rate: 1000 ml; Site: right antecubital; Disposition: 06:39 Co-signature as Attending Physician, González Curtis MD I agree with the assessment and branden plan of care. Disposition Summary: 09/09/21 03:21 Discharge Ordered Location: Home pm1 Problem: new pm1 Symptoms: have improved pm1 Condition: Stable pm1 Diagnosis - Orthostatic hypotension pm1 - Adverse effect of benzodiazepines pm1 Followup: pm1 - With: Emergency Department - When: As needed - Reason: Worsening of condition Followup: pm1 - With: Private Physician - When: 2 - 3 days - Reason: Recheck today's complaints, Continuance of care, Re-evaluation by your physician Discharge Instructions: - Discharge Summary Sheet pm1 - Orthostatic Hypotension pm1 - Form - Return To Work mk Forms: - Medication Reconciliation Form pm1 - Thank You Letter pm1 - Antibiotic Education pm1 - Prescription Opioid Use pm1 Signatures: González Curtis MD MD cha Marinas, Patrick, NP [employer] pm1 Dafne Newsome, RN RN 5 Gabbie Briggs RN RN mk
[2021-09-09 03:43] VITALS: TEMP 97.9
[2021-09-09 03:52] VITALS: O2SAT 100
[2021-09-09 03:56] VITALS: BP 84/51
== END 2021-09-09 03:36 | disposition home or self-care (01) ==
LOC: ER 00:07
DX: I95.2 Hypotension due to drugs (principal); T42.4X5A Adverse effect of benzodiazepines, initial encounter; Y92.009 Unspecified place in unspecified non-institutional (private) residence as the place of occurrence of the external cause
CPT/HCPCS: 99284; J7030

== ENCOUNTER 2023-07-10 12:49 | Emergency (ER) | payer BC, OTHER ==
--- OUTSIDE RECORDS SUMMARY | 2023-07-10 12:52 | XMS REPORT | Continuity of Care Document ---
:1970 Author Organization [facility] t Address [address] [place] [address] [place] [id number] Care Team Providers Name Role Phone Asked, No Pcp Primary Care Physician Unavailable Dante Mckeon Attending Clinician Satish Rubio Attending Clinician Doctor Unassigned, [place] Attending Clinician Unavailable Jus Bennett MD Attending Clinician Problems Condition Condition Condition Status Onset Resolution Last Treating Co mments Source Name Details Category Date Date Treatment Clinician Date Idiopathic Idiopathic Disease Active M ethodi [facility]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 l athy athy Asthma Asthma Problem Active 2019-09-09 Sedrick nighat (disorder) (disorder) 02:08:58 l Active Benjamin Problem 09/09/2019 [facility] Lumbar Lumbar Problem Active 2019-09-09 Sedrick nighat radiculopa radiculopa 02:08:58 l thy thy [place] (disorder) (disorder) Active Problem 09/09/2019 [facility] Morbid Morbid Problem Active 2019-09-09 Sedrick nighat obesity obesity 02:08:58 l (disorder) (disorder) He rmann Active Problem 09/09/2019 [facility] Peripheral Periphera Problem Active 2019-09-09 Mem[facility] nerve l nerve 02:08:58 l disease disease Benjamin (disorder) (disorder) Active Problem 09/09/2019 [facility] Allergies, Adverse Reactions, Alerts Allergy Allergy Status Severity Reaction(s) Onset Inactive Treating Comm ents Source Name Type Date Date Clinician NSAIDs NSAIDs Active Sahra l Benjamin Social History Social Habit Start Date Stop Date Quantity Comments Source Sexual orientation 2019-05-12 Heterosexual Meth odist 22:00:36 (finding) Hospital Social History 2019-05-24 2019-05-24 Vincenzo H ermann 16:05:45 16:05:45 Sex Ass[birth year] At [birth year] F [facility] 00:00:00 00:00:00 Hospital Smoking Status Start Date Stop Date Source Tobacco smoking consumption unknown [facility] Medications Ordered Filled Start Stop Current Ordering [...] Sedrickhuber Alexander Diastolic (mm Hg) 2019-05-24 15:53:00 [facility] Heart Rate 2019-05-24 15:53:00 [facility] Respitory Rate 2019-05-24 15:53:00 [facility] [place] Height 2019-05-24 15:53:00 154.94 cm [facility] Weight 2019-05-24 15:53:00 [facility] BMI Calculated 2019-05-24 15:53:00 [facility] elva Alexander Procedures This patient has no known procedures. Plan of Care Planned Activity Planned Date Details Comments Source Future Scheduled 2023-06-25 Screening for [facility] Test 14:29:34 malignant neoplasm of cervix (procedure) [code = 155852459] Future Scheduled 2023-06-25 BREAST CANCER [facility] Test 14:29:34 SCREENING [code = BREAST CANCER SCREENING] Future Scheduled 2023-06-25 Screening for [facility] Test 14:29:34 malignant neoplasm of colon (procedure) [code = 013463321] Future Scheduled 2023-06-25 Screening for [facility] Test 14:29:34 malignant neoplasm of colon (procedure) [code = 787001901] Future Scheduled 2023-06-25 SHINGLES VACCINES [facility] Test 14:29:34 (1 of 2) [code = SHINGLES VACCINES (1 of 2)] Future Scheduled 2023-06-25 INFLUENZA VACCINE [facility] Test 14:29:34 (#1) [code = INFLUENZA VACCINE (#1)] Future Scheduled 2023-06-25 [facility] for [facility] Test 14:29:34 malignant neoplasm of colon (procedure) [code = 422350659] Future Scheduled 2023-06-25 [facility] for [facility] Test 14:29:34 malignant neoplasm of colon (procedure) [code = 297587908] Future Scheduled 2023-06-25 [facility]ening for [facility] Test 14:29:34 malignant neoplasm of colon (procedure) [code = 660161915] Future Scheduled 2023-06-25 COVID-[address] [facility] Test 14:29:34 (#1) [code = COVID-19 VACCINE (#1)] Encounters Start End Encounter Admission Attending Care Care Encounter Source Date/Time Date/Time Type Type Clinicians Facility Department ID 2019-09-05 2019-09-07 Outside nullFlavo MNA [id number] Memoria 18:03:41 05:59:59 Medical r Neurology 00 l Records Kate Alexander 2019-09-05 2019-09-06 Outpatient MISCHER MHMISCHER [id number] 12:03:41 23:59:59 00 2019-07-06 2019-07-06 Ambulatory nullFlavo MNA [id number] Memoria 15:15:00 15:15:00 Pre-Reg r Neurology 02 favian Kate Alexander 2019-07-06 2019-07-06 Outpatient PAULINE CARPENTER [id number] Memoria 09:15:00 09:15:00 02 favian Alexander 2019-07-06 2019-07-06 Outpatient ANNE-MARIE MckeonSCHLACY [id number] 09:15:00 09:15:00 Dante 02 Dragan 2019-05-24 2019-05-25 Outpatient nullFlavo MNA [id number] Memoria 15:45:00 04:59:59 r Neurology 01 favian Alexander 2019-05-24 2019-05-24 Outpatient ANNE-MARIE MckeonSCHLACY [id number] 10:45:00 23:59:59 Dante Dragan 2019-05-24 2019-05-24 Ambulatory nullFlavo MNA [id number] Memoria 15:45:00 15:45:00 Pre-Reg r Neurology 00 l Kate Alexander 2019-05-24 2019-05-24 Outpatient MHIE MHIE [id number] Memoria 10:45:00 10:45:00 01 favian Alexander 2019-05-24 2019-05-24 Outpatient DEMETRIO MckeonMISCHER MHMISCHER [id number] 10:45:00 10:45:00 Dante Bernabe Dragan 2019-05-17 2019-05-17 Office Xander [facility] [id number] 15:39:24 15:54:24 Visit Satish [facility] [id number] Surgical [id number] Specialti [id number] es 198 [place] 2019-05-17 2019-05-17 Orders Doctor DAVID [id number] 00:00:00 00:00:00 Only Unassigned, CHAO [id number] [place] [facility] [id number] [id number] [id number] 2019-05-06 2019-05-06 Telephone [facility] [id number] 00:00:00 00:00:00 Jus Matthews [facility] [id number] Surgical [id number] Specialti [id number] es 198 [place] 2019-05-03 2019-05-03 [facility] [id number] 00:00:00 00:00:00 Jus Matthews [place] [id number] Surgical [id number] Specialti [id number] es 198 [place] 2019-04-28 2019-04-28 [facility] [id number] 00:00:00 00:00:00 Jus Matthews [facility] [id number] Surgical [id number] Specialti [id number] es 198 [place] 2019-04-27 2019-04-27 Orders Doctor DAVID [id number] 00:00:00 00:00:00 Only Unassigned, CHAO [id number] [place] [facility] 4.2.7.2.686 [id number] [id number] 2019-04-26 2019-04-26 Telephone Sabrina [facility] [id number] 00:00:00 00:00:00 Jus Matthews [place] [id number] Surgical [id number] Specialti [id number] es 198 [place] 2019-04-06 2019-04-06 [facility] [id number] 15:32:45 23:59:00 Encounter Jus Matthews [place] [id number] Surgical 4.2.7.2.686 Specialti [id number] es 809 [place] 2019-04-06 2019-04-06 Office Xander [facility] [id number] 15:15:09 15:57:34 Visit Satish [place] [id number] Surgical 4.2.7.2.686 Specialti [id number] es 198 [place] Results This patient has no known results.
--- NOTE | 2023-07-10 13:31 | ER ---
Nurse's Notes [facility] Name: Tabatha Drew Age: 52 yrs Sex: Female : 1970 Arrival Date: 07/10/2023 Time: 12:49 Bed DX5 Private MD: Diagnosis: Otitis media right side, with rupture Presentation: 07/10 13:27 Chief complaint: Patient states: right ear pain since yesterday. Coronavirus screen: At iw this time, the client does not indicate any symptoms associated with coronavirus-19. Ebola Screen: Patient negative for fever greater than or equal to 101.5 degrees Fahrenheit, and additional compatible Ebola Virus Disease symptoms Patient denies exposure to infectious person. Patient denies travel to an Ebola-affected area in the 21 days before illness onset. No symptoms or risks identified at this time. Initial Sepsis Screen: Does the patient meet any 2 criteria? No. Patient's initial sepsis screen is negative. Does the patient have a suspected source of infection? No. Patient's initial sepsis screen is negative. Risk Assessment: Do you want to hurt yourself or someone else? Patient reports no desire to harm self or others. Onset of symptoms was July 09, 2023. 13:27 Method Of Arrival: Ambulatory iw 13:27 Acuity: SARAN 4 iw Triage Assessment: 13:37 General: Appears uncomfortable, Behavior is agitated. iw Historical: - Allergies: 13:27 Aspirin; iw 13:27 NSAIDS; iw - PMHx: 13:27 Asthma; Kidney stones; Obesity; iw Screenin:38 [facility] ED Fall Risk Assessment (Adult) Score/Fall Risk Level 0 - 2 = Low Risk. Abuse iw screen: Denies threats or abuse. Denies injuries from another. Nutritional screening: No deficits noted. Tuberculosis screening: No symptoms or risk factors identified. Assessment: 13:39 General: Appears uncomfortable, Behavior is anxious. Pain: Complains of pain in right iw ear. Neuro: Level of Consciousness is awake, alert, obeys commands, Oriented to person, place, time. Respiratory: Respiratory effort is even, unlabored, Respiratory pattern is regular. EENT: Ear canal. Vital Signs: 13:29 BP 132 / 68; Pulse 82; Resp 16; Temp 98.1; Pulse Ox 96% on R/A; Pain 10/10; iw 13:29 Pain Scale: Adult iw ED Course: 12:52 Patient arrived in ED. im 12:52 Mary Kate Valentine MD is Attending Physician. sp3 13:27 Triage completed. iw 13:27 Arm band placed on. iw 13:38 No provider procedures requiring assistance completed. Patient did not have IV access iw during this emergency room visit. 13:39 Michelle Holguin, RN is Primary Nurse. iw Administered Medications: No medications were administered Medication: 13:39 VIS not applicable for this client. iw Outcome: 13:30 Discharge ordered by . sp3 13:38 Discharged to home ambulatory, iw 13:38 Condition: good 13:38 Discharge instructions given to patient, Instructed on discharge instructions, follow up and referral plans. medication usage, Demonstrated understanding of instructions, follow-up care, medications, Prescriptions given X 3, 13:39 Patient left the ED. iw Signatures: Michelle Holguin RN RN iw Mary Kate Valentine MD MD sp3 Asha Knight im
--- NOTE | 2023-07-10 13:31 | EDPHYS ---
Physician Documentation [facility] Name: Tabatha Drew Age: 52 yrs Sex: Female : 1970 Arrival Date: 07/10/2023 Time: 12:49 Bed DX5 Private MD: ED Physician Mary Kate Valentine HPI: 07/10 13:27 53-year-old female with history of asthma, kidney stones now presents to the ED with sp3 right ear pain and drainage. Symptoms have been going on for 2 days. 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 x1 yesterday, place lidocaine drops in her ear yesterday, took ketorolac p.o. yesterday, and 2 [place]'s that she had for pain. No other symptoms reported including fever, sinus symptoms, URI symptoms, chest pain, shortness of breath, or any other signs or symptoms on ROS at this time.. Historical: - Allergies: 13:27 Aspirin; iw 13:27 NSAIDS; iw - PMHx: 13:27 Asthma; Kidney stones; Obesity; iw ROS: 13:28 Constitutional: Negative for fever, chills, and weight loss, Eyes: Negative for injury, sp3 pain, redness, and discharge, Neck: Negative for injury, pain, and swelling, Cardiovascular: Negative for chest pain, palpitations, and edema, Respiratory: Negative for shortness of breath, cough, wheezing, and pleuritic chest pain, Abdomen/GI: Negative for abdominal pain, nausea, vomiting, diarrhea, and constipation, Back: Negative for injury and pain, MS/Extremity: Negative for injury and deformity, Neuro: Negative for headache, weakness, numbness, tingling, and seizure, 13:28 All other systems are negative, Exam: 13:29 Constitutional: This is a well developed, well nourished patient who is awake, alert, sp3 and in no acute distress. Head/Face: Normocephalic, atraumatic. Eyes: Pupils equal round and reactive to light, extra-ocular motions intact. Lids and lashes normal. Conjunctiva and sclera are non-icteric and not injected. Cornea within normal limits. Periorbital areas with no swelling, redness, or edema. Neck: Trachea midline, no thyromegaly or masses palpated, and no cervical lymphadenopathy. Supple, full range of motion without nuchal rigidity, or vertebral point tenderness. No Meningismus. Chest/axilla: Normal chest wall appearance and motion. Nontender with no deformity. No lesions are appreciated. Cardiovascular: Regular rate and rhythm with a normal S1 and S2. No gallops, murmurs, or rubs. Normal PMI, no JVD. No pulse deficits. Respiratory: Lungs have equal breath sounds bilaterally, clear to auscultation and percussion. No rales, rhonchi or wheezes noted. No increased work of breathing, no retractions or nasal flaring. Neuro: Awake and alert, GCS 15, oriented to person, place, time, and situation. Cranial nerves II-XII grossly intact. Motor strength 5/5 in all extremities. Sensory grossly intact. Cerebellar exam normal. Normal gait. Psych: Awake, alert, with orientation to person, place and time. Behavior, mood, and affect are within normal limits. 13:29 ENT: Right ear erythema with ruptured eardrum and mild fluid drainage.. Vital Signs: 13:29 BP 132 / 68; Pulse 82; Resp 16; Temp 98.1; Pulse Ox 96% on R/A; Pain 10/10; iw 13:29 Pain Scale: Adult iw MDM: 13:29 Data reviewed: vital signs, nurses notes. ED course: I have counseled patient on not sp3 taking unprescribed medications. We will place on Augmentin p.o. and Cipro eardrops.. 13:30 Patient medically screened. sp3 Administered Medications: No medications were administered Disposition Summary: 07/10/23 13:30 Discharge Ordered Notes: Location: Home sp3 Condition: Stable sp3 Diagnosis - Otitis media right side, with rupture sp3 Followup: sp3 - With: Private Physician - When: Upon discharge from the Emergency Department - Reason: Continuance of care Discharge Instructions: - Discharge Summary Sheet sp3 Forms: - Medication Reconciliation Form sp3 - Thank You Letter sp3 - Antibiotic Education sp3 - Prescription Opioid Use sp3 - Patient Portal Instructions sp3 - Leadership Thank You Letter sp3 Prescriptions: - lidocaine HCl 4 % (40 mg/mL) subgingival-local solution - apply 2.5 milliliter OTIC route every 6 hours as needed for pain; 5 milliliter; sp3 Refills: 0, Product Selection Permitted - Augmentin 875-125 mg Oral Tablet - take 1 tablet ORAL route every 12 hours for 10 days; 20 tablet; Refills: 0, sp3 Product Selection Permitted - Cipro HC 0.2-1 % Otic Drops - instill 3 drops OTIC route every 12 hours for 7 days; 10 milliliter; Refills: sp3 0, Product Selection Permitted - Tramadol 50 mg Oral Tablet - take 1 tablet ORAL route every 8 hours as needed; 12 tablet; Refills: 0, sp3 Product Selection Permitted Signatures: Michelle Holguin, RN RN Mary Kate Rose MD MD sp3
[2023-07-10 13:58] VITALS: BP 132/68; TEMP 98.1; O2SAT 96
== END 2023-07-10 13:39 | disposition home or self-care (01) ==
LOC: ER 12:49
DX: H66.011 Acute suppurative otitis media with spontaneous rupture of ear drum, right ear (principal); Z88.6 Allergy status to analgesic agent
CPT/HCPCS: 99283